=== PATIENT | female | born 1955 | race Caucasian/White ===

== ENCOUNTER → 2016-07-27 | Outpatient (CLI) | payer MEDICAID ==
[2016-07-27 08:23] LABS: ABSOLUTE BASOPHILS # (AUTO) 0.1 10^3/uL (0.0-0.2); ABSOLUTE EOSINOPHILS # (AUTO) 0.3 10^3/uL (0.0-0.6); ABSOLUTE LYMPHOCYTES (AUTO) 1.9 10^3/uL (0.5-4.7); ABSOLUTE MONOCYTES (AUTO) 0.6 10^3/uL (0.1-1.4); ABSOLUTE NEUT (AUTO) 6.3 10^3/uL (1.7-8.2); BASOPHILS % (AUTO) 1.1 % (0-2); EOSINOPHILS % (AUTO) 3.7 % (0-6); HEMATOCRIT 37.3 % (36.0-47.0); HEMOGLOBIN 12.6 g/dL (12.0-15.5); HGB HCT DIFFERENCE 0.5; LYMPHOCYTES % (AUTO) 20.6 % (13-45); MEAN CORPUSCULAR HGB CONC 33.8 g/dL (32.0-36.0); MEAN CORPUSCULAR VOLUME 95 fl (80-97); RED BLOOD COUNT 3.94 10^6/uL (3.72-5.28); RED CELL DISTRIBUTION WIDTH 13.4 % (11.5-14.0); SEGMENTED NEUTROPHILS % (AUTO) 67.6 % (42-78); WHITE BLOOD COUNT 9.3 10^3/uL (4.0-10.5)
[2016-07-27 08:42] LABS: ALBUMIN 4.1 g/dL (3.5-5.0); ANION GAP 14 (5-19); BLOOD UREA NITROGEN 19 mg/dL (7-20); CALCIUM 9.6 mg/dL (8.4-10.2); CARBON DIOXIDE 29 mmol/L (22-30); CHLORIDE 100 mmol/L (98-107); CREATININE RESULT 1.26 mg/dL (0.52-1.25); GLUCOSE 86 mg/dL (75-110); PHOSPHORUS 5.3 mg/dL (2.5-4.5); POTASSIUM 5.1 mmol/L (3.6-5.0); SODIUM 143.3 mmol/L (137-145)
[2016-07-27 08:50] LABS: APPEARANCE,URINE CLEAR; BILIRUBIN,URINE NEGATIVE (NEGATIVE); GLUCOSE, URINE NEGATIVE (NEGATIVE); KETONES,URINE NEGATIVE (NEGATIVE); LEUKOCYTE ESTERASE,URINE NEGATIVE (NEGATIVE); NITRITE,URINE NEGATIVE (NEGATIVE); PROTEIN,URINE NEGATIVE (NEGATIVE); URINE SPECIFIC GRAVITY 1.005; UROBILINOGEN,URINE NEGATIVE mg/dL (<2.0)
[2016-07-28 07:12] LABS: VITAMIN D 25-HYDROXY 26.2 ng/mL (30.0-100.0)
[2016-07-28 12:38] LABS: CREATININE URINE 38.1 mg/dL (Not Estab.)
[2016-07-28 13:47] LABS: MICROALBUMIN URINE <3.0 ug/mL (Not Estab.)
== END ==
LOC: OD 07:22
PROVIDERS: ATTEND Internal Medicine Nephrology
DX: N18.3 Chronic kidney disease, stage 3 (moderate) (principal); E11.9 Type 2 diabetes mellitus without complications; E55.9 Vitamin D deficiency, unspecified
CPT/HCPCS: 36415; 80048; 81001; 82040; 82043; 82306; 82570; 83970; 84100; 85025

== ENCOUNTER → 2016-10-26 | Outpatient (CLI) | payer MEDICAID ==
[2016-10-26 10:17] LABS: ANION GAP 11 (5-19); BLOOD UREA NITROGEN 12 mg/dL (7-20); CALCIUM 9.8 mg/dL (8.4-10.2); CARBON DIOXIDE 30 mmol/L (22-30); CHLORIDE 98 mmol/L (98-107); CREATININE RESULT 0.97 mg/dL (0.52-1.25); GLUCOSE 257 mg/dL (75-110); PHOSPHORUS 3.2 mg/dL (2.5-4.5); POTASSIUM 4.7 mmol/L (3.6-5.0)
== END ==
LOC: OD 08:56
PROVIDERS: ATTEND Internal Medicine Nephrology
DX: N18.3 Chronic kidney disease, stage 3 (moderate) (principal); E55.9 Vitamin D deficiency, unspecified
CPT/HCPCS: 36415; 80048; 82306; 84100

== ENCOUNTER → 2017-03-01 | Outpatient (CLI) | payer MEDICAID ==
[2017-03-01 09:06] LABS: ANION GAP 14 (5-19); BLOOD UREA NITROGEN 25 mg/dL (7-20); CALCIUM 9.1 mg/dL (8.4-10.2); CARBON DIOXIDE 27 mmol/L (22-30); CHLORIDE 97 mmol/L (98-107); CREATININE RESULT 1.47 mg/dL (0.52-1.25); GLUCOSE 146 mg/dL (75-110); POTASSIUM 4.5 mmol/L (3.6-5.0)
[2017-03-02 12:38] LABS: CREATININE URINE 100.4 mg/dL (Not Estab.); MICROALBUMIN URINE <3.0 ug/mL (Not Estab.)
== END ==
LOC: OD 07:42
PROVIDERS: ATTEND Internal Medicine Nephrology
DX: N18.3 Chronic kidney disease, stage 3 (moderate) (principal); E11.22 Type 2 diabetes mellitus with diabetic chronic kidney disease
CPT/HCPCS: 36415; 80048; 82043; 82570

== ENCOUNTER → 2017-06-18 | Outpatient (CLI) | payer MEDICAID ==
[2017-06-18 07:30] LABS: ABSOLUTE BASOPHILS # (AUTO) 0.1 10^3/uL (0.0-0.2); ABSOLUTE EOSINOPHILS # (AUTO) 0.3 10^3/uL (0.0-0.6); ABSOLUTE LYMPHOCYTES (AUTO) 1.9 10^3/uL (0.5-4.7); ABSOLUTE MONOCYTES (AUTO) 0.8 10^3/uL (0.1-1.4); ABSOLUTE NEUT (AUTO) 6.1 10^3/uL (1.7-8.2); BASOPHILS % (AUTO) 0.8 % (0-2); HEMOGLOBIN 15.5 g/dL (12.0-15.5); LYMPHOCYTES % (AUTO) 20.7 % (13-45); MEAN CORPUSCULAR HEMOGLOBIN 31.3 pg (27.0-33.4); MEAN CORPUSCULAR HGB CONC 33.7 g/dL (32.0-36.0); MEAN CORPUSCULAR VOLUME 93 fl (80-97); PLATELET COUNT 278 10^3/uL (150-450); RED BLOOD COUNT 4.96 10^6/uL (3.72-5.28); RED CELL DISTRIBUTION WIDTH 13.1 % (11.5-14.0); SEGMENTED NEUTROPHILS % (AUTO) 66.5 % (42-78); TOTAL CELLS COUNTED % (AUTO) 100 %; WHITE BLOOD COUNT 9.2 10^3/uL (4.0-10.5)
[2017-06-18 07:33] LABS: APPEARANCE,URINE CLEAR; BILIRUBIN,URINE NEGATIVE (NEGATIVE); COLOR,URINE STRAW; GLUCOSE, URINE NEGATIVE (NEGATIVE); KETONES,URINE NEGATIVE (NEGATIVE); LEUKOCYTE ESTERASE,URINE NEGATIVE (NEGATIVE); NITRITE,URINE NEGATIVE (NEGATIVE); PROTEIN,URINE NEGATIVE (NEGATIVE); URINE SPECIFIC GRAVITY 1.002; UROBILINOGEN,URINE NEGATIVE mg/dL (<2.0)
[2017-06-18 08:00] LABS: ALBUMIN 4.7 g/dL (3.5-5.0); ANION GAP 11 (5-19); BLOOD UREA NITROGEN 17 mg/dL (7-20); CARBON DIOXIDE 30 mmol/L (22-30); CHLORIDE 98 mmol/L (98-107); GLUCOSE 88 mg/dL (75-110); PHOSPHORUS 3.5 mg/dL (2.5-4.5)
[2017-06-19 12:37] LABS: CREATININE URINE 13.7 mg/dL (Not Estab.); MICROALBUMIN URINE 11.7 ug/mL (Not Estab.)
== END ==
LOC: OD 07:03
PROVIDERS: ATTEND Internal Medicine Nephrology
DX: I12.9 Hypertensive chronic kidney disease with stage 1 through stage 4 chronic kidney disease, or unspecified chronic kidney disease (principal); N18.3 Chronic kidney disease, stage 3 (moderate); E55.9 Vitamin D deficiency, unspecified
CPT/HCPCS: 36415; 80048; 81001; 82040; 82043; 82306; 82570; 83970; 84100; 85025

== ENCOUNTER 2017-08-28 15:25 | Inpatient (IN) | payer MEDICAID ==
[2017-08-28] MEDS ORDERED: PROPOFOL 100 ML IV ONE (15:36)
[2017-08-28] MEDS ORDERED: ETOMIDATE INJ/PF 20 MG/10 ML SDV IV ONE (15:36)
[2017-08-28] MEDS ORDERED: NORMAL SALINE 1000 ML 1,000 ML IV ONE (15:37)
--- NOTE | 2017-08-28 15:41 | ER Document Report ---
ED General - General Stated Complaint: UNRESPONSIVE Time Seen by Provider: 08/28/17 15:26 Mode of Arrival: Medic Information source: Emergency Med Personnel Cannot obtain history due to: Unstable vital signs, Altered mental status Notes: 62-year-old female presents unresponsive with EMS concerns for not acting appropriate. neighbr noted patient was found unresponsive, ems noted blood suga rat 20, was given dextrose blood sugar improved to 160 but patient was still unresponsve. nasal trumpet placed and patient bagged, sats in the mid to low 80s. ptnoted to have a recent endarterectomy performed at [facility]. TRAVEL OUTSIDE OF THE [place] IN LAST 30 DAYS: No - HPI Onset: Just prior to arrival Onset/Duration: Sudden Quality of pain: No pain Severity: Severe Pain Level: Denies Associated symptoms: Other Exacerbated by: Denies Relieved by: Denies Similar symptoms previously: No Recently seen / treated by doctor: Yes - Related Data Allergies/Adverse Reactions: amoxicillin [Amoxicillin] Allergy (Unknown, Verified 04/05/16 14:43) erythromycin base [Erythromycin Base] Allergy (Unknown, Verified 04/05/16 14:43) tetracycline [Tetracycline] Allergy (Unknown, Verified 04/05/16 14:43) Past Medical History - General Cannot obtain history due to: Unstable vital signs, Altered mental status - Social History Smoking Status: Unknown if Ever Smoked Cigarette use (# per day): No Chew tobacco use (# tins/day): No Smoking Education Provided: No Family History: Reviewed & Not Pertinent - Past Medical History Cardiac Medical History: Reports: Hx Hypercholesterolemia, Hx Hypertension - hctz amlodipine metropolol Denies: Hx Heart Attack Pulmonary Medical History: Reports: Hx COPD Denies: Hx Asthma Neurological Medical History: Denies: Hx Cerebrovascular Accident, Hx Seizures Endocrine Medical History: Reports: Hx Diabetes Mellitus Type 1, Hx Diabetes Mellitus Type 2 - IDDM GI Medical History: Denies: Hx Hepatitis, Hx Hiatal Hernia, Hx Ulcer Musculoskeltal Medical History: Reports Hx Arthritis Psychiatric Medical History: Reports: Hx Anxiety, Hx Depression Infectious Medical History: Denies: Hx Hepatitis Past Surgical History: Reports: Hx Oral Surgery - bone spurs and ingrown toenails. Denies: Hx Mastectomy, Hx Open Heart Surgery, Hx Pacemaker - Immunizations Hx Diphtheria, Pertussis, Tetanus Vaccination: Yes Hx Pneumococcal Vaccination: 04/12/15 Review of Systems - Review of Systems Notes: PHYSICAL EXAMINATION: GENERAL: Morbidly obese female unresponsive to pain stimuli HEAD: Atraumatic, normocephalic. EYES: Pupils are fixed ENT: Nares patent, oropharynx clear without exudates. Moist mucous membranes. Patient clenched tight nasal trumpet in place NECK: No movement LUNGS: Coarse breath sounds all throughout HEART: Bradycardic ABDOMEN: Soft, nontender, nondistended abdomen. No guarding, no rebound. No masses appreciated. Female : deferred Musculoskeletal: Not moving extremities NEUROLOGICAL: GCS 3 SKIN: Ecchymosis of abdomen -: Yes ROS unobtainable due to patient's medical condition Physical Exam - Vital signs Vitals: Resp Pulse Ox 24 H 83 L 08/28/17 15:29 08/28/17 15:29 Course - Re-evaluation Re-evalutation: 08/28/17 15:41 Given history of carotid endarterectomy I believe the patient may have had clots that caused a stroke led to aspiration respiratory distress and patient became hypoglycemic afterwards is unclear how long she has been down for CTA of the head has been ordered 08/28/17 16:30 Patient's potassium was noted to be 6.0 calcium is been ordered, Bella has been paged 08/28/17 21:12 Patient was admitted to the hospital service here there is no signs of CVA at this time patient appears to be moving extremities now - Vital Signs Vital signs: Temp Pulse Resp BP Pulse Ox 16 155/45 H 98 08/28/17 17:21 08/28/17 17:21 08/28/17 19:34 - Laboratory Result Diagrams: 08/28/17 15:40 08/28/17 15:40 Laboratory results interpreted by me: 08/28/17 08/28/17 08/28/17 15:40 15:40 15:40 WBC 12.2 H Seg Neutrophils % 83.2 H Lymphocytes % 8.8 L Absolute Neutrophils 10.2 H VBG pH 7.26 L VBG pCO2 74.8 H* VBG HCO3 32.6 H Potassium 6.0 H* Chloride 97 L BUN 23 H Creatinine 1.40 H Est GFR ( Amer) 46 L Est GFR (Non-Af Amer) 38 L Glucose 73 L POC Glucose 08/28/17 08/28/17 17:03 17:47 WBC Seg Neutrophils % Lymphocytes % Absolute Neutrophils VBG pH VBG pCO2 VBG HCO3 Potassium Chloride BUN Creatinine Est GFR ( Amer) Est GFR (Non-Af Amer) Glucose POC Glucose 60 L 197 H - Diagnostic Test Radiology reviewed: Image reviewed, Reports reviewed Procedures - Intubation Orotracheal Time of Intubation: 15:30 Airway evaluation: Normal anatomy Mallampati Classification: Class 1 Medications: Etomidate, Succinylcholine Intubation method: Orotracheal Blade type: Zuleima Blade size: 4 ETT size: 7.0 ETT secured at: Teeth ETT secured at (cm): 22 Breath Sounds after Intubation: Equal End tidal CO2 confirmed: Yes Post Intubation Xray: Yes Intubation Complications: No complications Critical Care Note - Critical Care Note Total time excluding time spent on procedures (mins): 52 Comments: 52 minutes of critical care time spent in direct contact evaluating and reevaluating the patient, treating symptoms, reviewing labs and studies and speaking with family and consultants excluding any procedures Discharge - Discharge Clinical Impression: Chronic renal failure, stage 3 (moderate), Hypoxemia, Hypoglycemic coma Altered mental status Qualifiers: Altered mental status type: unspecified Qualified Code(s): R41.82 - Altered mental status, unspecified Condition: Critical Disposition: ADMITTED INPATIENT Admitting Provider: Hospitalist Unit Admitted: ICU
--- NOTE | 2017-08-28 15:56 | RADIOLOGY REPORT (SQ) ---
EXAM DESCRIPTION: CHEST SINGLE VIEW COMPLETED DATE/TIME: 08/28/2017 3:43 pm REASON FOR STUDY: post intubation COMPARISON: None. EXAM PARAMETERS: NUMBER OF VIEWS: One view. TECHNIQUE: Single frontal radiographic view of the chest acquired. RADIATION DOSE: NA LIMITATIONS: Rotated. FINDINGS: LUNGS AND PLEURA: Elevated left hemidiaphragm. Possible scattered atelectasis. Possible mild vascular congestion. MEDIASTINUM AND HILAR STRUCTURES: No masses. Contour normal. HEART AND VASCULAR STRUCTURES: Heart normal in size. BONES: No acute findings. HARDWARE: Endotracheal tube with the tip located 3 cm proximal to the maulik. OTHER: No other significant finding. IMPRESSION: ENDOTRACHEAL TUBE APPEARS TO BE IN SATISFACTORY POSITION. STUDY LIMITED DUE TO PATIENT ROTATION. TECHNICAL DOCUMENTATION: JOB ID: [id number] [employer]- All Rights Reserved Reading location - IP/workstation name: [email or web address]
[2017-08-28 15:59] LABS: ABSOLUTE BASOPHILS # (AUTO) 0.1 10^3/uL (0.0-0.2); ABSOLUTE EOSINOPHILS # (AUTO) 0.2 10^3/uL (0.0-0.6); ABSOLUTE LYMPHOCYTES (AUTO) 1.1 10^3/uL (0.5-4.7); ABSOLUTE MONOCYTES (AUTO) 0.7 10^3/uL (0.1-1.4); ABSOLUTE NEUT (AUTO) 10.2 10^3/uL (1.7-8.2); BASOPHILS % (AUTO) 0.5 % (0-2); EOSINOPHILS % (AUTO) 1.5 % (0-6); HEMOGLOBIN 14.5 g/dL (12.0-15.5); LYMPHOCYTES % (AUTO) 8.8 % (13-45); MEAN CORPUSCULAR HEMOGLOBIN 30.8 pg (27.0-33.4); MEAN CORPUSCULAR HGB CONC 32.9 g/dL (32.0-36.0); MEAN CORPUSCULAR VOLUME 94 fl (80-97); PLATELET COUNT 266 10^3/uL (150-450); SEGMENTED NEUTROPHILS % (AUTO) 83.2 % (42-78); TOTAL CELLS COUNTED % (AUTO) 100 %; WHITE BLOOD COUNT 12.2 10^3/uL (4.0-10.5)
[2017-08-28 16:03] LABS: VENOUS BLOOD BASE EXCESS 2.8 mmol/L; VENOUS BLOOD HCO3 32.6 mmol/L (20-32); VENOUS BLOOD PH 7.26 (7.30-7.42)
[2017-08-28 16:05] LABS: VENOUS BLOOD PCO2 74.8 mmHg (35-63)
[2017-08-28 16:07] LABS: INTERNATIONAL RATION (INR) 0.95; PROTHROMBIN TIME 13.2 SEC (11.4-15.4)
[2017-08-28 16:15] LABS: APPEARANCE,URINE CLEAR; BILIRUBIN,URINE NEGATIVE (NEGATIVE); COLOR,URINE YELLOW; GLUCOSE, URINE NEGATIVE (NEGATIVE); KETONES,URINE NEGATIVE (NEGATIVE); LEUKOCYTE ESTERASE,URINE NEGATIVE (NEGATIVE); NITRITE,URINE NEGATIVE (NEGATIVE); PROTEIN,URINE NEGATIVE (NEGATIVE); URINE SPECIFIC GRAVITY 1.012; UROBILINOGEN,URINE NEGATIVE mg/dL (<2.0)
[2017-08-28 16:18] LABS: ALANINE AMINOTRANSFERASE 36 U/L (9-52); ALBUMIN 3.7 g/dL (3.5-5.0); ALKALINE PHOSPHATASE 87 U/L (38-126); ANION GAP 11 (5-19); ASPARTATE AMINO TRANSFERASE 29 U/L (14-36); BILIRUBIN,DIRECT 0.3 mg/dL (0.0-0.4); BILIRUBIN,TOTAL 0.3 mg/dL (0.2-1.3); BLOOD UREA NITROGEN 23 mg/dL (7-20); CALCIUM 9.1 mg/dL (8.4-10.2); CARBON DIOXIDE 29 mmol/L (22-30); CHLORIDE 97 mmol/L (98-107); GLUCOSE 73 mg/dL (75-110); TOTAL PROTEIN 7.1 g/dL (6.3-8.2)
--- NOTE | 2017-08-28 16:26 | RADIOLOGY REPORT (SQ) ---
EXAM DESCRIPTION: KUB/ABDOMEN (SINGLE VIEW) COMPLETED DATE/TIME: 08/28/2017 4:14 pm REASON FOR STUDY: NG TUBE PLACEMENT COMPARISON: None. NUMBER OF VIEWS: One view. TECHNIQUE: Supine radiographic image of the abdomen acquired. LIMITATIONS: None. FINDINGS: NG tube tip overlies the antral region of the stomach. No free air identified. OTHER: No other significant finding. IMPRESSION: NG tube tip overlies the antral region of the stomach. No free air identified. TECHNICAL DOCUMENTATION: JOB ID: [id number] [place]-72 2010 [employer]- All Rights Reserved Reading location - IP/workstation name: [email or web address]
[2017-08-28] MEDS ORDERED: CALCIUM GLUCONATE 1000 MG/10 ML INJ IV ONE (16:27)
[2017-08-28] MEDS ORDERED: DEXTROSE 50%-WATER 25 GM/50 ML DISP.SYRIN IV ONE ×3 (16:49→17:06)
[2017-08-28] MEDS ORDERED: INSULIN REG, HUMAN 100 UNIT/ML 3 ML VIAL (PYX) IV ONE (16:49)
[2017-08-28] MEDS ORDERED: ALBUTEROL SULFATE 0.083% NEB 2.5 MG/3 ML AMPUL NEB ONE (16:49)
[2017-08-28] MEDS ORDERED: SODIUM BICARBONATE 8.4% INJ 50 MEQ/50 ML DISP.SYRIN IV ONE (16:49)
--- NOTE | 2017-08-28 17:07 | RADIOLOGY REPORT (SQ) ---
EXAM DESCRIPTION: CTA HEAD COMPLETED DATE/TIME: 08/28/2017 4:49 pm REASON FOR STUDY: post intubation COMPARISON: 04/05/2016 TECHNIQUE: Post IV contrast scanning, thin section axial imaging through the brain to evaluate the a rterial structures. Source and MIP images are saved and reviewed on PACS. Advanced 3D imaging as volume-rendering, MIPs, SSD performed? No All CT scanners at this facility use dose modulation, iterative reconstruction, and/or weight based d osing when appropriate to reduce radiation dose to as low as reasonably achievable (ALARA). [facility]: Dose Right [facility]: CareDose [facility]: Dose Right [facility]: Teradose 4D [facility]: ExtraOrtho CONTRAST TYPE AND DOSE: contrast/concentration: Isovue 370.00 mg/ml; Total Contrast Delivered: 70.0 ml; Total Saline Delivered: 75.1 ml RENAL FUNCTION: Due to the severity of the patient's condition, the treating physician elected to pe rform the study prior to obtaining labs. LIMITATIONS: None. FINDINGS: [place]: The anterior, middle, posterior cerebral arteries are all patent. No ev idence of aneurysm or focal stenosis. POSTERIOR CIRCULATION: The distal vertebral arteries are patent as is the basilar artery. No aneurysm . BRAIN: No gross enhancing lesions as visualized. The superior cerebral hemispheres are not included in the field of view. BONES: Intact as visualized. SINUSES: No fluid or mucosal thickening. OTHER: The patient is intubated. A nasal enteric tube is present. Atherosclerotic vascular calcific ations are present within the cavernous segments of the internal carotid arteries bilaterally resulti ng in less than 50% stenosis. IMPRESSION: NO CTA EVIDENCE OF STENOSIS OR ANEURYSM OF THE [place]. TECHNICAL DOCUMENTATION: JOB ID: [id number] Quality ID # [id number]: Final reports with documentation of one or more dose reduction techniques (e.g., Au tomated exposure control, adjustment of the mA and/or kV according to patient size, use of iterative reconstruction technique) 2010 [employer]- All Rights Reserved Reading location - IP/workstation name: [email or web address]
[2017-08-28] MEDS ORDERED: MIDAZOLAM HCL 50 MG/100 ML RTUINJ IV ONE (18:16)
[2017-08-28] MEDS: MIDAZOLAM HCL 50 MG/100 ML RTUINJ IV PRN (18:16)
[2017-08-28] MEDS ORDERED: ONDANSETRON HCL INJ/PF 4 MG/2 ML SDV IV PRN (18:21)
[2017-08-28] MEDS ORDERED: DEXTROSE 50%-WATER 25 GM/50 ML DISP.SYRIN IV PRN ×2 (18:21)
[2017-08-28] MEDS ORDERED: DEXTROSE 40% GEL 15 GM TUBE PO PRN ×2 (18:21)
[2017-08-28] MEDS ORDERED: GLUCAGON,HUMAN RECOMB 1 MG INJ SUBCUT PRN (18:21)
[2017-08-28] MEDS ORDERED: MIDAZOLAM HCL 50 MG/100 ML RTUINJ IV PRN (18:39)
--- NOTE | 2017-08-28 18:41 | PDOC H&P ---
History of Present Illness Admission Date/PCP: 08/28/17 18:08 Patient complains of: Unresponsive History of Present Illness: CHELLY MONTALVO is a 62 year old female This patient presents to the emergency room after being found unresponsive by her family. She was last seen yesterday evening and was found to be unresponsive and hypoglycemic with a blood sugar of 20. Blood sugar improved to 160 but patient apparently remained unresponsive and on arrival to the emergency room she was intubated. Patient currently is unable to provide any history as she is currently intubated. She was found to be very hyperkalemic with a potassium of 6 and acidotic with a pH of 7.2 and PCO2 of 70. Past Medical History Cardiac Medical History: Reports: Hyperlipidema, Hypertension - hctz amlodipine metropolol Denies: Myocardial Infarction Pulmonary Medical History: Reports: Chronic Obstructive Pulmonary Disease (COPD) Denies: Asthma Neurological Medical History: Denies: Seizures Endocrine Medical History: Reports: Diabetes Mellitus Type 1, Diabetes Mellitus Type 2 - IDDM GI Medical History: Denies: Hepatitis, Hiatal Hernia Musculoskeltal Medical History: Reports: Arthritis Psychiatric Medical History: Reports: Depression Hematology: Reports: Anemia - HX OF MANY YRS AGO Denies: Sickle Cell Disease Past Surgical History Past Surgical History: Reports: Carotid Endarterectomy - Recently at [facility] Denies: Amputation, Mastectomy, Pacemaker Social History Information Source: [facility] Records Lives with: Alone Smoking Status: Unknown if Ever Smoked Frequency of Alcohol Use: None Hx Recreational Drug Use: No Drugs: None Hx Prescription Drug Abuse: No - Advance Directive Resuscitation Status: Full Code Family History Family History: Reviewed & Not Pertinent Parental Family History Reviewed: No - Unavailable Children Family History Reviewed: Unknown Sibling(s) Family History Reviewed.: Unknown Medication/Allergy Home Medications: Amlodipine Besylate [Norvasc 10 mg Tablet] 10 mg PO DAILY 07/29/11 Cetirizine HCl [Zyrtec 10 mg Tablet] 10 mg PO DAILY 07/29/11 Clonazepam [Klonopin 1 mg Tablet] 1 mg PO TID 07/29/11 Dorzolamide HCl/Timolol Maleat [Cosopt Eye Drops] 5 ml OP BID 07/29/11 Doxepin HCl 50 mg PO QHS 07/29/11 Hum Insulin NPH/Reg Insulin Hm [Humulin 70-30 Pen] 55 unit SQ BID 07/29/11 Latanoprost [Xalatan] 2.5 ml OP QHS 07/29/11 Metoprolol Tartrate [Lopressor 50 mg Tablet] 50 mg PO BID 07/29/11 Olopatadine HCl [Patanol] 5 ml OP BID 07/29/11 Polyethylene Glycol 3350 [Miralax Powder 17 gm/Packet] 17 gm PO DAILY 07/29/11 Simvastatin [Zocor 40 mg Tablet] 40 mg PO QHS 07/29/11 Aripiprazole [Abilify 2 mg Tablet] 2 mg PO 03/10/12 Citalopram Hydrobromide [Celexa 40 mg Tablet] 40 mg PO 03/10/12 Gabapentin [Neurontin 300 mg Capsule] 300 mg PO 03/10/12 Hydrocodone Bit/Acetaminophen [Vicodin 5-500 mg Tablet ([facility] Only)] 1 - 2 tab PO ASDIR PRN #15 tablet 03/10/12 Multivitamin [Tab-A-Eliezer (Multiple Vitamin) Tablet] 1 tab PO DAILY 03/10/12 Olopatadine HCl [Patanol 0.1% Oph Soln 5 ml] 1 drop BID 03/10/12 Polyethylene Glycol 3350 [Miralax Powder 17 gm/Packet] 17 gm PO 03/10/12 Valsartan [Diovan] 320 mg PO DAILY 03/10/12 Aspirin [Ecotrin 325 mg EC Tablet] 325 mg PO DAILY tabec 04/06/16 Allergies/Adverse Reactions: amoxicillin [Amoxicillin] Allergy (Unknown, Verified 04/05/16 14:43) erythromycin base [Erythromycin Base] Allergy (Unknown, Verified 04/05/16 14:43) tetracycline [Tetracycline] Allergy (Unknown, Verified 04/05/16 14:43) Review of Systems ROS unobtainable: Due to endotracheal tube Physical Exam Vital Signs: Temp Pulse Resp BP Pulse Ox 16 155/45 H 98 08/28/17 17:21 08/28/17 17:21 08/28/17 17:21 General appearance: PRESENT: well-developed, well-nourished, other - intubated Head exam: PRESENT: atraumatic, normocephalic Eye exam: PRESENT: conjunctiva pink, PERRLA. ABSENT: scleral icterus Ear exam: PRESENT: normal external ear exam Mouth exam: PRESENT: moist, other - intubated Neck exam: ABSENT: carotid bruit, JVD, lymphadenopathy, thyromegaly Respiratory exam: PRESENT: decreased breath sounds. ABSENT: rales, rhonchi, wheezes Cardiovascular exam: PRESENT: RRR. ABSENT: diastolic murmur, rubs, systolic murmur Pulses: PRESENT: normal dorsalis pedis pul Vascular exam: PRESENT: normal capillary refill GI/Abdominal exam: PRESENT: normal bowel sounds, soft. ABSENT: distended, guarding, mass, organolmegaly, rebound, tenderness Rectal exam: PRESENT: deferred Extremities exam: PRESENT: full ROM. ABSENT: calf tenderness, clubbing, pedal edema Neurological exam: PRESENT: other - sedated, intermittently awake. ABSENT: motor sensory deficit Skin exam: PRESENT: dry, intact, warm, other - Bruise Left upper extremities. ABSENT: cyanosis, rash Results Impressions: KUB X-Ray 08/28/17 00:00 IMPRESSION: NG tube tip overlies the antral region of the stomach. No free air identified. Chest X-Ray 08/28/17 15:37 IMPRESSION: ENDOTRACHEAL TUBE APPEARS TO BE IN SATISFACTORY POSITION. STUDY LIMITED DUE TO PATIENT ROTATION. Head CTA 08/28/17 15:37 IMPRESSION: NO CTA EVIDENCE OF STENOSIS OR ANEURYSM OF THE [place]. Assessment & Plan - Diagnosis (1) Acute respiratory failure with hypercapnia Is this a current diagnosis for this admission?: Yes Plan: Patient was intubated in the emergency room she was found to be hypercapnic with respiratory failure. Will not start on Versed drip and continue propofol. Consult manager crisis to help in the management (2) Hypoglycemia Is this a current diagnosis for this admission?: Yes Plan: Patient was found hypoglycemic originally. Does have a history of diabetes. Other information is unknown currently (3) Hyperkalemia Is this a current diagnosis for this admission?: Yes Plan: Potassium of 6 likely related to acidosis. Save albuterol as well as calcium gluconate insulin close dextrose in the emergency room. Will check basic metabolic profile again in a few hours (4) Acidosis Is this a current diagnosis for this admission?: Yes Plan: The combination of respiratory as well as metabolic. Will recheck ABG in a.m. - Time Time Spent: 30 to 50 Minutes Medications reviewed and adjusted accordingly: Yes Anticipated discharge: Home Within: within 72 hours - Inpatient Certification Based on my medical assessment, after consideration of the patient's comorbidities, presenting symptoms, or acuity I expect that the services needed warrant INPATIENT care.: Yes Medical Necessity: Need For IV Fluids, Need for IV Antibiotics, Risk of Complication if Not Cared For in Hospital
--- NOTE | 2017-08-28 20:45 | EKG REPORT ---
SEVERITY:- ABNORMAL ECG - SINUS BRADYCARDIA NONSPECIFIC INTRAVENTRICULAR CONDUCTION DELAY : Confirmed by: Americo Andersen 28-Aug-2017 17:45:02
[2017-08-28 20:52] LABS: ANION GAP 14 (5-19); BLOOD UREA NITROGEN 20 mg/dL (7-20); CALCIUM 9.4 mg/dL (8.4-10.2); CARBON DIOXIDE 25 mmol/L (22-30); CHLORIDE 100 mmol/L (98-107); GLUCOSE 161 mg/dL (75-110); SODIUM 139.2 mmol/L (137-145)
[2017-08-28] MEDS: PROPOFOL 100 ML IV PRN (20:58)
[2017-08-28] MEDS: LEVOFLOXACIN 500 MG/D5W RTU 500 MG/100 ML RTUPB IV SCH (21:58)
[2017-08-29] MEDS: PROPOFOL 100 ML IV PRN ×8 (00:45→23:42)
[2017-08-29 04:17] LABS: ABSOLUTE BASOPHILS # (AUTO) 0.1 10^3/uL (0.0-0.2); ABSOLUTE EOSINOPHILS # (AUTO) 0.1 10^3/uL (0.0-0.6); ABSOLUTE LYMPHOCYTES (AUTO) 0.8 10^3/uL (0.5-4.7); ABSOLUTE MONOCYTES (AUTO) 0.8 10^3/uL (0.1-1.4); ABSOLUTE NEUT (AUTO) 10.9 10^3/uL (1.7-8.2); BASOPHILS % (AUTO) 0.7 % (0-2); EOSINOPHILS % (AUTO) 0.6 % (0-6); HEMATOCRIT 42.8 % (36.0-47.0); HEMOGLOBIN 14.5 g/dL (12.0-15.5); LYMPHOCYTES % (AUTO) 6.6 % (13-45); MEAN CORPUSCULAR HGB CONC 33.8 g/dL (32.0-36.0); MEAN CORPUSCULAR VOLUME 92 fl (80-97); MONOCYTES % (AUTO) 6.5 % (3-13); PLATELET COUNT 234 10^3/uL (150-450); RED BLOOD COUNT 4.67 10^6/uL (3.72-5.28); RED CELL DISTRIBUTION WIDTH 13.8 % (11.5-14.0); SEGMENTED NEUTROPHILS % (AUTO) 85.6 % (42-78); TOTAL CELLS COUNTED % (AUTO) 100 %; WHITE BLOOD COUNT 12.8 10^3/uL (4.0-10.5)
[2017-08-29 04:38] LABS: ALANINE AMINOTRANSFERASE 29 U/L (9-52); ALBUMIN 3.2 g/dL (3.5-5.0); ALKALINE PHOSPHATASE 88 U/L (38-126); ANION GAP 14 (5-19); ASPARTATE AMINO TRANSFERASE 24 U/L (14-36); BILIRUBIN,DIRECT 0.4 mg/dL (0.0-0.4); BILIRUBIN,TOTAL 0.4 mg/dL (0.2-1.3); BLOOD UREA NITROGEN 17 mg/dL (7-20); CALCIUM 8.6 mg/dL (8.4-10.2); CARBON DIOXIDE 25 mmol/L (22-30); CHLORIDE 101 mmol/L (98-107); GLUCOSE 144 mg/dL (75-110); POTASSIUM 4.3 mmol/L (3.6-5.0); SODIUM 139.8 mmol/L (137-145); TOTAL PROTEIN 6.5 g/dL (6.3-8.2); TRIGLYCERIDES 355 mg/dL (<150)
[2017-08-29 06:04] LABS: ARTERIAL BLOOD BASE EXCESS 2.6 mmol/L; ARTERIAL BLOOD H2CO3 1.04 mmol/L (1.05-1.35); ARTERIAL BLOOD HCO3 25.6 mmol/L (20-26); ARTERIAL BLOOD O2 SATURATION 95.6 % (94-98); ARTERIAL BLOOD PCO2 34.7 mmHg (35-45); ARTERIAL BLOOD PH 7.49 (7.35-7.45); ARTERIAL BLOOD PO2 71.8 mmHg (80-100); ARTERIAL BLOOD TOTAL CO2 26.6 mmol/L (21-25)
[2017-08-29 06:05] LABS: ARTERIAL BLOOD FIO2 70%
[2017-08-29] MEDS ORDERED: MIDAZOLAM 2 MG/2 ML INJ ONE ×3 (07:21→07:23)
[2017-08-29] MEDS: MIDAZOLAM HCL 50 MG/100 ML RTUINJ IV PRN ×2 (07:46→17:54)
[2017-08-29] MEDS: ENOXAPARIN SODIUM INJ 40 MG/0.4 ML DISP.SYRIN SUBCUT SCH (10:13)
[2017-08-29] MEDS: PANTOPRAZOLE SODIUM 40 MG VIAL IV SCH (10:14)
[2017-08-29] MEDS: RINGERS SOLUTION,LACTATED 1,000 ML IV PRN ×2 (10:15→19:41)
--- NOTE | 2017-08-29 10:17 | PDOC CONSULTATION ---
Consultation Consult Date: 08/29/17 Consult reason:: need IV access History of Present Illness Admission Date/PCP: 08/28/17 18:08 History of Present Illness: CHELLY MONTALVO is a 62 year old female currently intubated and sedated on a ventilator via ETT in need of IV access for medications and fluid. Past Medical History Cardiac Medical History: Reports: Hyperlipidema, Hypertension - hctz amlodipine metropolol Denies: Myocardial Infarction Pulmonary Medical History: Reports: Chronic Obstructive Pulmonary Disease (COPD) Denies: Asthma Neurological Medical History: Denies: Seizures Endocrine Medical History: Reports: Diabetes Mellitus Type 1, Diabetes Mellitus Type 2 - IDDM GI Medical History: Denies: Hepatitis, Hiatal Hernia Musculoskeltal Medical History: Reports: Arthritis Psychiatric Medical History: Reports: Depression Hematology: Reports: Anemia - HX OF MANY YRS AGO Denies: Sickle Cell Disease Past Surgical History Past Surgical History: Reports: Carotid Endarterectomy - Recently at [facility] Denies: Amputation, Mastectomy, Pacemaker Social History Lives with: Alone Smoking Status: Unknown if Ever Smoked Frequency of Alcohol Use: None Hx Recreational Drug Use: No Drugs: None Hx Prescription Drug Abuse: No - Advance Directive Resuscitation Status: Full Code Family History Family History: Reviewed & Not Pertinent Parental Family History Reviewed: No Children Family History Reviewed: No Sibling(s) Family History Reviewed.: No Medication/Allergy Home Medications: Amlodipine Besylate [Norvasc 10 mg Tablet] 10 mg PO DAILY 07/29/11 Cetirizine HCl [Zyrtec 10 mg Tablet] 10 mg PO DAILY 07/29/11 Clonazepam [Klonopin 1 mg Tablet] 1 mg PO TID 07/29/11 Dorzolamide HCl/Timolol Maleat [Cosopt Eye Drops] 5 ml OP BID 07/29/11 Doxepin HCl 50 mg PO QHS 07/29/11 Hum Insulin NPH/Reg Insulin Hm [Humulin 70-30 Pen] 55 unit SQ BID 07/29/11 Latanoprost [Xalatan] 2.5 ml OP QHS 07/29/11 Metoprolol Tartrate [Lopressor 50 mg Tablet] 50 mg PO BID 07/29/11 Olopatadine HCl [Patanol] 5 ml OP BID 07/29/11 Polyethylene Glycol 3350 [Miralax Powder 17 gm/Packet] 17 gm PO DAILY 07/29/11 Simvastatin [Zocor 40 mg Tablet] 40 mg PO QHS 07/29/11 Aripiprazole [Abilify 2 mg Tablet] 2 mg PO 03/10/12 Citalopram Hydrobromide [Celexa 40 mg Tablet] 40 mg PO 03/10/12 Gabapentin [Neurontin 300 mg Capsule] 300 mg PO 03/10/12 Hydrocodone Bit/Acetaminophen [Vicodin 5-500 mg Tablet ([facility])] 1 - 2 tab PO ASDIR PRN #15 tablet 03/10/12 Multivitamin [Tab-A-Eliezer (Multiple Vitamin) Tablet] 1 tab PO DAILY 03/10/12 Olopatadine HCl [Patanol 0.1% Oph Soln 5 ml] 1 drop BID 03/10/12 Polyethylene Glycol 3350 [Miralax Powder 17 gm/Packet] 17 gm PO 03/10/12 Valsartan [Diovan] 320 mg PO DAILY 03/10/12 Aspirin [Ecotrin 325 mg EC Tablet] 325 mg PO DAILY tabec 04/06/16 Allergies/Adverse Reactions: amoxicillin [Amoxicillin] Allergy (Unknown, Verified 04/05/16 14:43) erythromycin base [Erythromycin Base] Allergy (Unknown, Verified 04/05/16 14:43) tetracycline [Tetracycline] Allergy (Unknown, Verified 04/05/16 14:43) Physical Exam Vital Signs: Temp Pulse Resp BP Pulse Ox 100.8 F H 86 16 134/99 H 95 08/29/17 06:05 08/29/17 08:10 08/29/17 08:10 08/29/17 06:05 08/29/17 08:10 Intake & Output 08/28/17 08/29/17 08/30/17 06:59 06:59 06:59 Output Total 1710 200 Balance -1710 -200 Weight 97.3 kg General appearance: PRESENT: morbidly obese, other - sedated, intubated, unresponsive Neck exam: PRESENT: full ROM, meningismus Respiratory exam: PRESENT: clear to auscultation daphnie Cardiovascular exam: PRESENT: RRR Results Laboratory Results: 08/29/17 03:53 08/29/17 03:53 08/28/17 08/29/17 08/29/17 20:27 03:53 03:53 WBC 12.8 H RBC 4.67 Hgb 14.5 Hct 42.8 MCV 92 MCH 31.0 MCHC 33.8 RDW 13.8 Plt Count 234 Seg Neutrophils % 85.6 H Lymphocytes % 6.6 L Monocytes % 6.5 Eosinophils % 0.6 Basophils % 0.7 Absolute Neutrophils 10.9 H Absolute Lymphocytes 0.8 Absolute Monocytes 0.8 Absolute Eosinophils 0.1 Absolute Basophils 0.1 Carbonic Acid HCO3/H2CO3 Ratio ABG pH ABG pCO2 ABG pO2 ABG HCO3 ABG O2 Saturation ABG Base Excess FiO2 Sodium 139.2 139.8 Potassium 5.0 D 4.3 Chloride 100 101 Carbon Dioxide 25 25 Anion Gap 14 14 BUN 20 17 Creatinine 1.15 0.90 Est GFR ( Amer) 58 L > 60 Est GFR (Non-Af Amer) 48 L > 60 Glucose 161 H 144 H Calcium 9.4 8.6 Total Bilirubin 0.4 AST 24 ALT 29 Alkaline Phosphatase 88 Total Protein 6.5 Albumin 3.2 L Triglycerides 355 H TSH 08/29/17 08/29/17 03:53 05:48 WBC RBC Hgb Hct MCV MCH MCHC RDW Plt Count Seg Neutrophils % Lymphocytes % Monocytes % Eosinophils % Basophils % Absolute Neutrophils Absolute Lymphocytes Absolute Monocytes Absolute Eosinophils Absolute Basophils Carbonic Acid 1.04 L HCO3/H2CO3 Ratio 24:1 ABG pH 7.49 H ABG pCO2 34.7 L ABG pO2 71.8 L ABG HCO3 25.6 ABG O2 Saturation 95.6 ABG Base Excess 2.6 FiO2 70% Sodium Potassium Chloride Carbon Dioxide Anion Gap BUN Creatinine Est GFR ( Amer) Est GFR (Non-Af Amer) Glucose Calcium Total Bilirubin AST ALT Alkaline Phosphatase Total Protein Albumin Triglycerides TSH 0.87 Impressions: KUB X-Ray 08/28/17 00:00 IMPRESSION: NG tube tip overlies the antral region of the stomach. No free air identified. Chest X-Ray 08/28/17 15:37 IMPRESSION: ENDOTRACHEAL TUBE APPEARS TO BE IN SATISFACTORY POSITION. STUDY LIMITED DUE TO PATIENT ROTATION. Head CTA 08/28/17 15:37 IMPRESSION: NO CTA EVIDENCE OF STENOSIS OR ANEURYSM OF THE [place]. Assessment & Plan - Diagnosis (1) Need for intravenous access Is this a current diagnosis for this admission?: Yes - Plan Summary Plan Summary: A/ patient intubate, sedated in need of IV access P/ Placement of CVL in the ICU CXray to follow
--- NOTE | 2017-08-29 10:19 | Operative Report ---
Nonrecallable Operative Report DATE OF SURGERY: 08/29/17 PREOPERATIVE DIAGNOSIS: need of IV access POSTOPERATIVE DIAGNOSIS: same OPERATION: right subclavian CVL placement SURGEON: ARMINDA MARION ANESTHESIA: Local TISSUE REMOVED OR ALTERED: n/a COMPLICATIONS: none ESTIMATED BLOOD LOSS: < 2 mL INTRAOPERATIVE FINDINGS: as above PROCEDURE: see dictation
--- NOTE | 2017-08-29 10:35 | RADIOLOGY REPORT (SQ) ---
EXAM DESCRIPTION: CHEST SINGLE VIEW COMPLETED DATE/TIME: 08/29/2017 10:14 am REASON FOR STUDY: CENTRAL LINE PLACEMENT COMPARISON: 08/28/2017. EXAM PARAMETERS: NUMBER OF VIEWS: One view. TECHNIQUE: Single frontal radiographic view of the chest acquired. RADIATION DOSE: NA LIMITATIONS: None. FINDINGS: LUNGS AND PLEURA: Streaky linear density in the left upper lobe. Prominent left perihilar density. Right lung relatively clear. No pleural effusion or pneumothorax. MEDIASTINUM AND HILAR STRUCTURES: No masses. Contour normal. HEART AND VASCULAR STRUCTURES: Heart normal in size. Normal vasculature. BONES: No acute findings. HARDWARE: Stable endotracheal tube and nasogastric tube. Right-sided central line with the tip at th e level of the superior vena cava. OTHER: No other significant finding. IMPRESSION: 1. CENTRAL LINE IN SATISFACTORY POSITION WITH NO PNEUMOTHORAX. 2. STREAKY DENSITY IN THE LEFT UPPER LOBE MAY BE DUE TO ATELECTASIS AND/OR PNEUMONIA. THERE IS ALSO PROMINENT LEFT PERIHILAR DENSITY WHICH COULD REPRESENT UNDERLYING MASS LESION. TECHNICAL DOCUMENTATION: JOB ID: [id number] [employer]- All Rights Reserved Reading location - IP/workstation name: VICE PRESIDENT [email or web address]
[2017-08-29] MEDS ORDERED: SUCCINYLCHOLINE CHLORIDE INJ 200 MG/10 ML VIAL ONE (10:36)
--- NOTE | 2017-08-29 10:55 | OPERATIVE REPORT E ---
Operative Report NAME: CHELLY MONTALVO : 1955 AGE: 62Y DATE OF SURGERY: 08/29/2017 ROOM: 601 PREOPERATIVE DIAGNOSIS: IN NEED OF INTRAVENOUS ACCESS. POSTOPERATIVE DIAGNOSIS: IN NEED OF INTRAVENOUS ACCESS. PROCEDURE: Placement of right subclavian vein intravenous line triple-lumen catheter. SURGEON: ARMINDA MARION M.D. SHIFT SUPERVISOR MELTING: None. BLOOD LOSS: Minimal. COMPLICATIONS: None. ANESTHESIA: 5 mL of 1% lidocaine without epinephrine. INDICATION/FINDINGS: This is a 62-year-old female admitted, currently intubated, in need of IV access for administration of medications and fluids. DESCRIPTION OF PROCEDURE: No family member was available; therefore, a physician consent was obtained. The procedure was done at bedside in the ICU. The patient was placed in the supine Trendelenburg position with towels placed in between the shoulder blades. The right chest and neck were prepped with in usual fashion. Just below the mid portion of the clavicle was infiltrated with lidocaine and a 16-gauge needle was inserted to easily cannulate the distal subclavian vein. The guidewire was inserted through a needle into the subclavian vein to the superior vena cava. The needle was removed and insertion port of the guidewire was enlarged with a #11 blade. The tissue was and the blade was removed. The triple-lumen catheter was inserted over the guidewire up to 16 cm. The guidewire was then removed. The triple-lumen catheter was then secured to the skin with sutures. Each port was flushed with normal saline without difficulty and sterile dressing applied. The patient tolerated the procedure and a chest x-ray was obtained, which confirmed good position of the line. DICTATING PHYSICIAN: ARMINDA MARION M.D. [id number] PHY#: [id number] ID: [id number] JOB#: [id number] ACCT: [id number] cc:ARMINDA MARION M.D. >
[2017-08-29] MEDS ORDERED: ACETAMINOPHEN 325 MG TABLET NG PRN (11:51)
[2017-08-29] MEDS ORDERED: HYDROCODONE/ACETAMINOPHEN 7.5-325 MG TABLET PO SCH (12:00)
[2017-08-29] MEDS ORDERED: (PENDING PHARMACY ID) (Valsartan [Diovan] 320 MG) NG SCH (12:00)
--- NOTE | 2017-08-29 12:02 | PDOC PROGRESS REPORT ---
Subjective Progress Note for:: 08/29/17 Subjective:: Patient admitted with acute respiratory failure after she was found hypoglycemic and unresponsive. She remains on mechanical ventilation today. She is requiring 50mcg of Diprivan as well as Versed infusion at this time Reason For Visit: ACUTE RESPIRATORY FAIURE HYPOGLYCEMIA Physical Exam Vital Signs: Temp Pulse Resp BP Pulse Ox 99.7 F 91 16 164/59 H 96 08/29/17 11:00 08/29/17 10:00 08/29/17 11:00 08/29/17 10:35 08/29/17 11:00 Intake & Output 08/28/17 08/29/17 08/30/17 06:59 06:59 06:59 Output Total 1710 500 Balance -1710 -500 Weight 97.3 kg General appearance: PRESENT: no acute distress, well-developed, well-nourished, other - Intubated Head exam: PRESENT: atraumatic, normocephalic Eye exam: PRESENT: conjunctiva pink, PERRLA. ABSENT: scleral icterus Mouth exam: PRESENT: tongue midline Neck exam: ABSENT: carotid bruit, JVD, lymphadenopathy, thyromegaly Respiratory exam: PRESENT: decreased breath sounds. ABSENT: rales, rhonchi, wheezes Cardiovascular exam: PRESENT: RRR. ABSENT: diastolic murmur, rubs, systolic murmur Pulses: PRESENT: normal dorsalis pedis pul GI/Abdominal exam: PRESENT: normal bowel sounds, soft. ABSENT: distended, guarding, mass, organolmegaly, rebound, tenderness Rectal exam: PRESENT: deferred Extremities exam: PRESENT: full ROM. ABSENT: calf tenderness, clubbing, pedal edema Neurological exam: PRESENT: other - Currently sedated Psychiatric exam: ABSENT: suicidal ideation Skin exam: PRESENT: dry, intact, warm. ABSENT: cyanosis, rash Results Laboratory Results: 08/29/17 03:53 08/29/17 03:53 08/28/17 08/29/17 08/29/17 20:27 03:53 03:53 WBC 12.8 H RBC 4.67 Hgb 14.5 Hct 42.8 MCV 92 MCH 31.0 MCHC 33.8 RDW 13.8 Plt Count 234 Seg Neutrophils % 85.6 H Lymphocytes % 6.6 L Monocytes % 6.5 Eosinophils % 0.6 Basophils % 0.7 Absolute Neutrophils 10.9 H Absolute Lymphocytes 0.8 Absolute Monocytes 0.8 Absolute Eosinophils 0.1 Absolute Basophils 0.1 Carbonic Acid HCO3/H2CO3 Ratio ABG pH ABG pCO2 ABG pO2 ABG HCO3 ABG O2 Saturation ABG Base Excess FiO2 Sodium 139.2 139.8 Potassium 5.0 D 4.3 Chloride 100 101 Carbon Dioxide 25 25 Anion Gap 14 14 BUN 20 17 Creatinine 1.15 0.90 Est GFR ( Amer) 58 L > 60 Est GFR (Non-Af Amer) 48 L > 60 Glucose 161 H 144 H Calcium 9.4 8.6 Total Bilirubin 0.4 AST 24 ALT 29 Alkaline Phosphatase 88 Total Protein 6.5 Albumin 3.2 L Triglycerides 355 H TSH 08/29/17 08/29/17 03:53 05:48 WBC RBC Hgb Hct MCV MCH MCHC RDW Plt Count Seg Neutrophils % Lymphocytes % Monocytes % Eosinophils % Basophils % Absolute Neutrophils Absolute Lymphocytes Absolute Monocytes Absolute Eosinophils Absolute Basophils Carbonic Acid 1.04 L HCO3/H2CO3 Ratio 24:1 ABG pH 7.49 H ABG pCO2 34.7 L ABG pO2 71.8 L ABG HCO3 25.6 ABG O2 Saturation 95.6 ABG Base Excess 2.6 FiO2 70% Sodium Potassium Chloride Carbon Dioxide Anion Gap BUN Creatinine Est GFR ( Amer) Est GFR (Non-Af Amer) Glucose Calcium Total Bilirubin AST ALT Alkaline Phosphatase Total Protein Albumin Triglycerides TSH 0.87 Impressions: KUB X-Ray 08/28/17 00:00 IMPRESSION: NG tube tip overlies the antral region of the stomach. No free air identified. Head CTA 08/28/17 15:37 IMPRESSION: NO CTA EVIDENCE OF STENOSIS OR ANEURYSM OF THE [place]. Chest X-Ray 08/29/17 00:00 IMPRESSION: 1. CENTRAL LINE IN SATISFACTORY POSITION WITH NO PNEUMOTHORAX. 2. STREAKY DENSITY IN THE LEFT UPPER LOBE MAY BE DUE TO ATELECTASIS AND/OR PNEUMONIA. THERE IS ALSO PROMINENT LEFT PERIHILAR DENSITY WHICH COULD REPRESENT UNDERLYING MASS LESION. Assessment & Plan - Diagnosis (1) Acute respiratory failure with hypercapnia Is this a current diagnosis for this admission?: Yes Plan: Patient was intubated in the emergency room she was found to be hypercapnic with respiratory failure. Continue propofol and Versed. Pulmonology consultation is pending. Hypercapnia resolved (2) Hypoglycemia Is this a current diagnosis for this admission?: Yes Plan: Blood sugars have been acceptable (3) Hyperkalemia Is this a current diagnosis for this admission?: Yes Plan: Resolved etiology of which is still unclear (4) Acidosis Is this a current diagnosis for this admission?: Yes Plan: Resolved - Time Time Spent with patient: 25-34 minutes Medications reviewed and adjusted accordingly: Yes Anticipated discharge: Home Within: within 72 hours - Inpatient Certification Based on my medical assessment, after consideration of the patient's comorbidities, presenting symptoms, or acuity I expect that the services needed warrant INPATIENT care.: Yes Medical Necessity: Need for IV Antibiotics, Risk of Complication if Not Cared For in Hospital - Plan Summary Plan Summary: Urinary tract infection secondary to gram-positive cocci patient is on empiric Levaquin. We will adjust antibiotics depending on her clinical course Patient is still requiring [place] FiO2 and she remains hypoxemic so of course this is of concern I would need to rule out underlying PE. Is of course on the vent. Will order a CTA of the chest for further review.
[2017-08-29] MEDS ORDERED: HYDROCODONE/ACETAMINOPHEN 10-325 MG TABLET ONE (12:35)
[2017-08-29] MEDS ORDERED: METOPROLOL TARTRATE 50 MG TABLET NG ONE (15:30)
[2017-08-29] MEDS ORDERED: AMLODIPINE BESYLATE 10 MG TABLET NG ONE (15:30)
[2017-08-29] MEDS ORDERED: DORZOLAMIDE HCL 2%/TIMOLOL MALEAT 0.5% OPH SOLN 10 ML OP ONE (15:30)
[2017-08-29] MEDS ORDERED: VALSARTAN 160 MG TABLET NG ONE (15:30)
[2017-08-29] MEDS ORDERED: HYDROCHLOROTHIAZIDE 25 MG TABLET PO ONE (15:30)
[2017-08-29] MEDS ORDERED: NICOTINE 14 MG/24 HR PATCH.TD24 TD ONE (16:00)
[2017-08-29] MEDS: HYDROCODONE/ACETAMINOPHEN 7.5-325 MG TABLET NG SCH ×2 (17:52→23:41)
[2017-08-29] MEDS: INSULIN REG, HUMAN 100 UNIT/ML 3 ML VIAL (PYX) SUBCUT PRN (17:53)
[2017-08-29] MEDS ORDERED: HYDRALAZINE HCL INJ/PF 20 MG/1 ML SDV ONE (18:33)
[2017-08-29] MEDS ORDERED: HYDRALAZINE HCL INJ/PF 20 MG/1 ML SDV IV PRN (18:37)
--- NOTE | 2017-08-29 18:55 | PDOC CONSULTATION ---
Consultation Consult Date: 08/29/17 Attending physician:: RACHEL SALGADO Consult reason:: resp failure History of Present Illness Admission Date/PCP: 08/28/17 18:08 History of Present Illness: CHELLY MONTALVO is a 62 year old female,presented unresponsive and hypoglycemic mental status did not improve after blood glucose restored.She was acidotic and hypercanic with hypoxia requiring intubation and mechanical ventilation. Past Medical History Cardiac Medical History: Reports: Hyperlipidema, Hypertension - hctz amlodipine metropolol Denies: Myocardial Infarction Pulmonary Medical History: Reports: Chronic Obstructive Pulmonary Disease (COPD) Denies: Asthma Neurological Medical History: Denies: Seizures Endocrine Medical History: Reports: Diabetes Mellitus Type 1, Diabetes Mellitus Type 2 - IDDM GI Medical History: Denies: Hepatitis, Hiatal Hernia Musculoskeltal Medical History: Reports: Arthritis Psychiatric Medical History: Reports: Depression Hematology: Reports: Anemia - HX OF MANY YRS AGO Denies: Sickle Cell Disease Past Surgical History Past Surgical History: Reports: Carotid Endarterectomy - Recently at [facility] Denies: Amputation, Mastectomy, Pacemaker Social History Information Source: [facility] Records Lives with: Alone Smoking Status: Unknown if Ever Smoked Frequency of Alcohol Use: None Hx Recreational Drug Use: No Drugs: None Hx Prescription Drug Abuse: No - Advance Directive Resuscitation Status: Full Code Family History Parental Family History Reviewed: No Children Family History Reviewed: No Sibling(s) Family History Reviewed.: No Medication/Allergy Home Medications: Amlodipine Besylate [Norvasc 10 mg Tablet] 10 mg PO DAILY 07/29/11 Cetirizine HCl [Zyrtec 10 mg Tablet] 10 mg PO DAILY 07/29/11 Hum Insulin NPH/Reg Insulin Hm [Humulin 70-30 Pen] 55 unit SQ QAM 07/29/11 Polyethylene Glycol 3350 [Miralax Powder 17 gm/Packet] 17 gm PO DAILY 07/29/11 Gabapentin [Neurontin 300 mg Capsule] 300 mg PO TID 03/10/12 Aripiprazole [Abilify 5 mg Tablet] 5 mg PO DAILY 08/29/17 Atorvastatin Calcium [Lipitor 10 mg Tablet] 10 mg PO QHS 08/29/17 Brimonidine Tartrate/Timolol [Combigan 0.2%-0.5% Eye Drops] 5 ml OU BID Clonazepam [Klonopin] 0.5 mg PO TID 08/29/17 Clonidine HCl [Catapres 0.1 mg Tablet] 0.1 mg PO QIDP PRN 08/29/17 Cyclosporine [Restasis] 1 drop OU BID 08/29/17 Duloxetine HCl [Cymbalta] 120 mg PO DAILY 08/29/17 Hydrocodone Bit/Acetaminophen [Hydrocodon-Acetaminophn 10-325] 1 each PO Q4HP PRN 08/29/17 Insulin NPH Hum/Reg Insulin Hm [Humulin 70/30 Kwikpen] 52 unit SQ QHS 08/29/17 Levothyroxine Sodium [Synthroid 50 Mcg Tablet] 50 mcg PO DAILY 08/29/17 Metoprolol Succinate [Toprol Xl 25 mg Tab.sr] 75 mg PO QHS 08/29/17 Valsartan/Hydrochlorothiazide [Diovan Hct 320-25 mg Tablet] 1 tab PO DAILY 08/29 Zolpidem Tartrate [Ambien] 10 mg PO QHS 08/29/17 Allergies/Adverse Reactions: amoxicillin [Amoxicillin] Allergy (Unknown, Verified 04/05/16 14:43) erythromycin base [Erythromycin Base] Allergy (Unknown, Verified 04/05/16 14:43) tetracycline [Tetracycline] Allergy (Unknown, Verified 04/05/16 14:43) Review of Systems ROS unobtainable: Due to endotracheal tube, Due to mental status Physical Exam Vital Signs: Temp Pulse Resp BP Pulse Ox 100.8 F H 65 16 134/99 H 94 08/29/17 06:05 08/28/17 19:26 08/29/17 06:05 08/29/17 06:05 08/29/17 06:05 Intake & Output 08/28/17 08/29/17 08/30/17 06:59 06:59 06:59 Output Total 1710 Balance -1710 Weight 97.3 kg General appearance: PRESENT: no acute distress, disheveled, obese. ABSENT: cooperative Head exam: PRESENT: atraumatic, normocephalic Eye exam: PRESENT: conjunctiva pale. ABSENT: EOMI, nystagmus, periorbital swelling, scleral icterus Mouth exam: PRESENT: dry mucosa, neck supple, tongue midline, other - Et tube Neck exam: ABSENT: carotid bruit, JVD, lymphadenopathy, thyromegaly, tracheal deviation, tracheostomy Respiratory exam: PRESENT: decreased breath sounds, prolonged expiratory phas, rhonchi, unlabored. ABSENT: retraction, stridor, tachypnea Cardiovascular exam: PRESENT: RRR, +S1, +S2, tachycardia Pulses: PRESENT: normal radial pulses GI/Abdominal exam: PRESENT: soft Extremities exam: ABSENT: clubbing, joint swelling, pedal edema Musculoskeletal exam: ABSENT: deformity, dislocation Neurological exam: ABSENT: awake, oriented to person Skin exam: PRESENT: dry, warm Results Laboratory Results: 08/29/17 03:53 08/29/17 03:53 08/28/17 08/29/17 08/29/17 20:27 03:53 03:53 WBC 12.8 H RBC 4.67 Hgb 14.5 Hct 42.8 MCV 92 MCH 31.0 MCHC 33.8 RDW 13.8 Plt Count 234 Seg Neutrophils % 85.6 H Lymphocytes % 6.6 L Monocytes % 6.5 Eosinophils % 0.6 Basophils % 0.7 Absolute Neutrophils 10.9 H Absolute Lymphocytes 0.8 Absolute Monocytes 0.8 Absolute Eosinophils 0.1 Absolute Basophils 0.1 Carbonic Acid HCO3/H2CO3 Ratio ABG pH ABG pCO2 ABG pO2 ABG HCO3 ABG O2 Saturation ABG Base Excess FiO2 Sodium 139.2 139.8 Potassium 5.0 D 4.3 Chloride 100 101 Carbon Dioxide 25 25 Anion Gap 14 14 BUN 20 17 Creatinine 1.15 0.90 Est GFR ( Amer) 58 L > 60 Est GFR (Non-Af Amer) 48 L > 60 Glucose 161 H 144 H Calcium 9.4 8.6 Total Bilirubin 0.4 AST 24 ALT 29 Alkaline Phosphatase 88 Total Protein 6.5 Albumin 3.2 L Triglycerides 355 H TSH 08/29/17 08/29/17 03:53 05:48 WBC RBC Hgb Hct MCV MCH MCHC RDW Plt Count Seg Neutrophils % Lymphocytes % Monocytes % Eosinophils % Basophils % Absolute Neutrophils Absolute Lymphocytes Absolute Monocytes Absolute Eosinophils Absolute Basophils Carbonic Acid 1.04 L HCO3/H2CO3 Ratio 24:1 ABG pH 7.49 H ABG pCO2 34.7 L ABG pO2 71.8 L ABG HCO3 25.6 ABG O2 Saturation 95.6 ABG Base Excess 2.6 FiO2 70% Sodium Potassium Chloride Carbon Dioxide Anion Gap BUN Creatinine Est GFR ( Amer) Est GFR (Non-Af Amer) Glucose Calcium Total Bilirubin AST ALT Alkaline Phosphatase Total Protein Albumin Triglycerides TSH 0.87 Impressions: KUB X-Ray 08/28/17 00:00 IMPRESSION: NG tube tip overlies the antral region of the stomach. No free air identified. Chest X-Ray 08/28/17 15:37 IMPRESSION: ENDOTRACHEAL TUBE APPEARS TO BE IN SATISFACTORY POSITION. STUDY LIMITED DUE TO PATIENT ROTATION. Head CTA 08/28/17 15:37 IMPRESSION: NO CTA EVIDENCE OF STENOSIS OR ANEURYSM OF THE [place]. Assessment & Plan - Diagnosis (1) Lung mass Is this a current diagnosis for this admission?: Yes Plan: L hilar enlargement consider CT (2) Acute respiratory failure with hypercapnia Is this a current diagnosis for this admission?: Yes Plan: unresponsive (3) Diabetes Is this a current diagnosis for this admission?: Yes Plan: per pcp (4) Glaucoma Is this a current diagnosis for this admission?: Yes Plan: continue home meds (5) Hypertension Is this a current diagnosis for this admission?: Yes (6) Chronic, continuous use of opioids Is this a current diagnosis for this admission?: Yes Plan: resume vicoden - Time Total Critical Time (Minutes): 55
[2017-08-29] MEDS: LEVOFLOXACIN 500 MG/D5W RTU 500 MG/100 ML RTUPB IV SCH (21:02)
[2017-08-29] MEDS: DORZOLAMIDE HCL 2%/TIMOLOL MALEAT 0.5% OPH SOLN 10 ML OU SCH (21:03)
[2017-08-29] MEDS: LATANOPROST 0.005% OPH SOLN 2.5 ML OU SCH (21:04)
[2017-08-29] MEDS: SIMVASTATIN 40 MG TABLET NG SCH (21:04)
[2017-08-29] MEDS: METOPROLOL TARTRATE 25 MG TABLET NG SCH (21:05)
[2017-08-29] MEDS ORDERED: METOPROLOL TARTRATE 50 MG TABLET NG SCH (22:00)
[2017-08-29] MEDS ORDERED: METOPROLOL SUCCINATE 25 MG TAB.SR.24H PO SCH (22:00)
[2017-08-30] MEDS: PROPOFOL 100 ML IV PRN ×6 (03:33→23:18)
[2017-08-30 05:12] LABS: ABSOLUTE EOSINOPHILS # (AUTO) 0.2 10^3/uL (0.0-0.6); ABSOLUTE MONOCYTES (AUTO) 1.1 10^3/uL (0.1-1.4); ABSOLUTE NEUT (AUTO) 10.3 10^3/uL (1.7-8.2); ARTERIAL BLOOD BASE EXCESS 2.3 mmol/L; ARTERIAL BLOOD FIO2 40%; ARTERIAL BLOOD H2CO3 1.07 mmol/L (1.05-1.35); ARTERIAL BLOOD HCO3 25.5 mmol/L (20-26); ARTERIAL BLOOD O2 SATURATION 92.8 % (94-98); ARTERIAL BLOOD PCO2 35.5 mmHg (35-45); ARTERIAL BLOOD PH 7.48 (7.35-7.45); ARTERIAL BLOOD PO2 60.3 mmHg (80-100); ARTERIAL BLOOD TOTAL CO2 26.6 mmol/L (21-25); BASOPHILS % (AUTO) 0.3 % (0-2); EOSINOPHILS % (AUTO) 1.2 % (0-6); HEMATOCRIT 43.6 % (36.0-47.0); HEMOGLOBIN 14.6 g/dL (12.0-15.5); LYMPHOCYTES % (AUTO) 8.3 % (13-45); MEAN CORPUSCULAR HEMOGLOBIN 30.6 pg (27.0-33.4); MEAN CORPUSCULAR HGB CONC 33.5 g/dL (32.0-36.0); MEAN CORPUSCULAR VOLUME 91 fl (80-97); MONOCYTES % (AUTO) 9.1 % (3-13); PLATELET COUNT 234 10^3/uL (150-450); RED BLOOD COUNT 4.77 10^6/uL (3.72-5.28); SEGMENTED NEUTROPHILS % (AUTO) 81.1 % (42-78); TOTAL CELLS COUNTED % (AUTO) 100 %; WHITE BLOOD COUNT 12.7 10^3/uL (4.0-10.5)
[2017-08-30] MEDS: MIDAZOLAM HCL 50 MG/100 ML RTUINJ IV PRN ×2 (05:17→13:58)
[2017-08-30] MEDS: HYDROCODONE/ACETAMINOPHEN 7.5-325 MG TABLET NG SCH ×4 (05:17→23:17)
[2017-08-30] MEDS: RINGERS SOLUTION,LACTATED 1,000 ML IV PRN ×3 (05:19→20:40)
[2017-08-30 05:24] LABS: ALANINE AMINOTRANSFERASE 27 U/L (9-52); ALBUMIN 3.3 g/dL (3.5-5.0); ALKALINE PHOSPHATASE 98 U/L (38-126); ANION GAP 12 (5-19); ASPARTATE AMINO TRANSFERASE 17 U/L (14-36); BILIRUBIN,DIRECT 0.4 mg/dL (0.0-0.4); BILIRUBIN,TOTAL 0.5 mg/dL (0.2-1.3); BLOOD UREA NITROGEN 16 mg/dL (7-20); CALCIUM 9.1 mg/dL (8.4-10.2); CARBON DIOXIDE 28 mmol/L (22-30); CHLORIDE 97 mmol/L (98-107); GLUCOSE 281 mg/dL (75-110); PHOSPHORUS 2.9 mg/dL (2.5-4.5); POTASSIUM 3.6 mmol/L (3.6-5.0); SODIUM 136.9 mmol/L (137-145); TOTAL PROTEIN 6.5 g/dL (6.3-8.2)
[2017-08-30] MEDS: INSULIN REG, HUMAN 100 UNIT/ML 3 ML VIAL (PYX) SUBCUT PRN ×3 (05:54→18:29)
--- NOTE | 2017-08-30 08:06 | RADIOLOGY REPORT (SQ) ---
EXAM DESCRIPTION: CHEST SINGLE VIEW COMPLETED DATE/TIME: 08/30/2017 6:45 am REASON FOR STUDY: resp failure COMPARISON: Chest films 08/29/2017, 08/28/2017, 04/05/2016 EXAM PARAMETERS: NUMBER OF VIEWS: One view. TECHNIQUE: Single frontal radiographic view of the chest acquired. RADIATION DOSE: NA LIMITATIONS: None. FINDINGS: LUNGS AND PLEURA: Bandlike volume loss in the bilateral upper lobes left greater than righ t atelectasis versus pneumonia. No pleural effusions. No pneumothorax. MEDIASTINUM AND HILAR STRUCTURES: Fullness at the left hilum, mass could not be excluded. HEART AND VASCULAR STRUCTURES: Heart normal in size. Normal vasculature. BONES: No acute findings. HARDWARE: Endotracheal tube tip 5 cm above the maulik. Nasogastric tube tip and side port in the sto mach. Right-sided triple-lumen catheter tip in the superior vena cava. OTHER: No other significant finding. IMPRESSION: Partial volume loss left upper lobe with conus at the left hilum. Postobstructive pneum onia from hilar mass could not be excluded. CT chest recommended for followup. Partial volume loss medial right upper lobe atelectasis versus pneumonia. TECHNICAL DOCUMENTATION: JOB ID: [id number] [employer]- All Rights Reserved Reading location - IP/workstation name: [email or web address]
[2017-08-30 09:43] LABS: URINE AMPHETAMINES SCREEN NEGATIVE; URINE BARBITURATES SCREEN NEGATIVE; URINE COCAINE SCREEN NEGATIVE; URINE MARIJUANA (THC) SCREEN NEGATIVE; URINE METHADONE SCREEN NEGATIVE; URINE PHENCYCLIDINE SCREEN NEGATIVE
[2017-08-30 09:50] LABS: URINE BENZODIAZEPINES SCREEN UNCONFIRMED POSITIVE
[2017-08-30] MEDS: PANTOPRAZOLE SODIUM 40 MG VIAL IV SCH (11:17)
[2017-08-30] MEDS: NICOTINE 14 MG/24 HR PATCH.TD24 TD SCH (11:18)
[2017-08-30] MEDS: HYDROCHLOROTHIAZIDE 25 MG TABLET NG SCH (11:19)
[2017-08-30] MEDS: VALSARTAN 160 MG TABLET NG SCH (11:20)
[2017-08-30] MEDS: METOPROLOL TARTRATE 25 MG TABLET NG SCH ×2 (11:21→21:20)
[2017-08-30] MEDS: AMLODIPINE BESYLATE 10 MG TABLET NG SCH (11:21)
[2017-08-30] MEDS: ENOXAPARIN SODIUM INJ 40 MG/0.4 ML DISP.SYRIN SUBCUT SCH (11:22)
[2017-08-30] MEDS: DORZOLAMIDE HCL 2%/TIMOLOL MALEAT 0.5% OPH SOLN 10 ML OU SCH ×2 (11:23→21:20)
--- NOTE | 2017-08-30 11:41 | PDOC PROGRESS REPORT ---
Subjective Progress Note for:: 08/30/17 Subjective:: Intubated and sedated Reason For Visit: ACUTE RESPIRATORY FAIURE HYPOGLYCEMIA Physical Exam Vital Signs: Temp Pulse Resp BP Pulse Ox 98.6 F 89 16 164/64 H 95 08/30/17 07:48 08/30/17 07:48 08/30/17 07:48 08/30/17 07:48 08/30/17 07:51 Intake & Output 08/29/17 08/30/17 08/31/17 06:59 06:59 06:59 Intake Total 1430 Output Total 1710 3925 140 Balance -7420 -5675 -140 Weight 97.3 kg 96.3 kg General appearance: PRESENT: no acute distress, disheveled, obese. ABSENT: cooperative Head exam: PRESENT: normocephalic Eye exam: PRESENT: conjunctiva pale. ABSENT: nystagmus, periorbital swelling, scleral icterus Mouth exam: PRESENT: dry mucosa, neck supple, tongue midline, other - Et tube Neck exam: ABSENT: carotid bruit, JVD, lymphadenopathy, thyromegaly, tracheal deviation, tracheostomy Respiratory exam: PRESENT: decreased breath sounds, prolonged expiratory phas, rhonchi, unlabored, wheezes. ABSENT: retraction, stridor Cardiovascular exam: PRESENT: RRR, +S1, +S2, tachycardia Pulses: PRESENT: normal radial pulses GI/Abdominal exam: PRESENT: hypoactive bowel sounds, soft Extremities exam: ABSENT: calf tenderness, clubbing, joint swelling Musculoskeletal exam: ABSENT: ambulatory, deformity, dislocation Neurological exam: ABSENT: awake, oriented to person Skin exam: PRESENT: dry, warm Results Laboratory Results: 08/30/17 04:55 08/30/17 04:55 08/30/17 08/30/17 08/30/17 04:55 04:55 04:55 WBC 12.7 H RBC 4.77 Hgb 14.6 Hct 43.6 MCV 91 MCH 30.6 MCHC 33.5 RDW 14.0 Plt Count 234 Seg Neutrophils % 81.1 H Lymphocytes % 8.3 L Monocytes % 9.1 Eosinophils % 1.2 Basophils % 0.3 Absolute Neutrophils 10.3 H Absolute Lymphocytes 1.0 Absolute Monocytes 1.1 Absolute Eosinophils 0.2 Absolute Basophils 0.0 Carbonic Acid 1.07 HCO3/H2CO3 Ratio 23:1 ABG pH 7.48 H ABG pCO2 35.5 ABG pO2 60.3 L ABG HCO3 25.5 ABG O2 Saturation 92.8 L ABG Base Excess 2.3 FiO2 40% Sodium 136.9 L Potassium 3.6 Chloride 97 L Carbon Dioxide 28 Anion Gap 12 BUN 16 Creatinine 0.82 Est GFR ( Amer) > 60 Est GFR (Non-Af Amer) > 60 Glucose 281 H Calcium 9.1 Phosphorus 2.9 Magnesium 1.5 L Total Bilirubin 0.5 AST 17 ALT 27 Alkaline Phosphatase 98 Total Protein 6.5 Albumin 3.3 L Impressions: KUB X-Ray 08/28/17 00:00 IMPRESSION: NG tube tip overlies the antral region of the stomach. No free air identified. Head CTA 08/28/17 15:37 IMPRESSION: NO CTA EVIDENCE OF STENOSIS OR ANEURYSM OF THE [place]. Chest X-Ray 08/30/17 06:00 IMPRESSION: Partial volume loss left upper lobe with conus at the left hilum. Postobstructive pneumonia from hilar mass could not be excluded. CT chest recommended for followup. Partial volume loss medial right upper lobe atelectasis versus pneumonia. Assessment & Plan - Diagnosis (1) Lung mass Is this a current diagnosis for this admission?: Yes Plan: L hilar enlargement CT (2) Acute respiratory failure with hypercapnia Is this a current diagnosis for this admission?: Yes Plan: No improvement in mental status, remains unresponsive (3) Diabetes Is this a current diagnosis for this admission?: Yes Plan: per pcp (4) Glaucoma Is this a current diagnosis for this admission?: Yes Plan: continue home meds (5) Hypertension Is this a current diagnosis for this admission?: Yes (6) Chronic, continuous use of opioids Is this a current diagnosis for this admission?: Yes Plan: resume vicoden - Time Total Critical Time (Minutes): 45
--- NOTE | 2017-08-30 13:04 | RADIOLOGY REPORT (SQ) ---
EXAM DESCRIPTION: CTA CHEST COMPLETED DATE/TIME: 08/30/2017 12:33 pm REASON FOR STUDY: Hypoxemia, Acute respiratory Failure COMPARISON: Chest films 04/05/2016, 08/28/2017, 08/29/2017, 08/30/2017 TECHNIQUE: CT scan of the chest performed using helical scanning technique with dynamic intravenous contrast injection. Images reviewed with lung, soft tissue and bone windows. Reconstructed coronal and sagittal MPR images reviewed. Additional 3 dimensional post-processing performed to develop Maximal Intensity Projection images ([place] P). All images stored on PACS. All CT scanners at this facility use dose modulation, iterative reconstruction, and/or weight based d osing when appropriate to reduce radiation dose to as low as reasonably achievable (ALARA). [facility]: Dose Right [facility]: CareDose [facility]: Dose Right [facility]: Teradose 4D [facility]: [place]ster CONTRAST TYPE AND DOSE: contrast/concentration: Isovue 370.00 mg/ml; Total Contrast Delivered: 79.0 ml; Total Saline Delivered: 89.2 ml Contrast bolus adequate for pulmonary arteries and aorta. RENAL FUNCTION: Creatinine 0.82 RADIATION DOSE: CT Rad equipment meets quality standard of care and radiation dose reduction techniq ues were employed. CTDIvol: 33.1 - 38.1 mGy. DLP: 1348 mGy-cm. . LIMITATIONS: None. FINDINGS: LUNGS AND PLEURA: There is bandlike volume loss and consolidation in the medial left upper lobe, throughout the left lower lobe along the posterior costophrenic sulcus, and in the medial righ t lung base. Multiple irregularly-shaped subcentimeter nodules are present in the bilateral lungs. These are abno rmal but nonspecific. These are certainly worrisome for metastatic disease. No pleural effusions. No pneumothorax. AORTA AND GREAT VESSELS: No aneurysm. Contrast bolus not optimized for the aorta. HEART: No pericardial effusion. No significant coronary artery calcifications. Mild cardiomegaly PULMONARY ARTERIES: No emboli visualized in the main pulmonary arteries or the segmental branches. HILAR AND MEDIASTINAL STRUCTURES: No identified masses or abnormal nodes. HARDWARE: Endotracheal tube tip at the thoracic inlet, about 7 to 8 cm above the maulik. Nasogastric tube tip and side port in the stomach. UPPER ABDOMEN: No significant findings. Limited exam. THYROID AND OTHER SOFT TISSUES: No masses. No adenopathy. BONES: No acute or significant finding. 3D MIPS: Confirm above findings. OTHER: No other significant finding. IMPRESSION: Multiple subcentimeter pulmonary nodules bilaterally Bandlike dense consolidation atelectasis versus pneumonia in the medial left upper lobe, left posteri or costophrenic sulcus and medial right lung base. No CT angio evidence of thoracic aortic dissection or acute pulmonary emboli. COMMENT: Quality ID # [id number]: Final reports with documentation of one or more dose reduction techniques (e.g., Automated exposure control, adjustment of the mA and/or kV according to patient size, use of iterative reconstruction technique) TECHNICAL DOCUMENTATION: JOB ID: [id number] [employer]- All Rights Reserved Reading location - IP/workstation name: [email or web address]
[2017-08-30] MEDS ORDERED: RINGERS SOLUTION,LACTATED 500 ML IV ONE ×2 (16:15→20:00)
--- NOTE | 2017-08-30 17:06 | PDOC PROGRESS REPORT ---
Subjective Progress Note for:: 08/30/17 Subjective:: Patient admitted with acute respiratory failure after she was found hypoglycemic and unresponsive. She remains on mechanical ventilation today. She is still sedated and requiring high FIO2 Reason For Visit: ACUTE RESPIRATORY FAIURE HYPOGLYCEMIA Physical Exam Vital Signs: Temp Pulse Resp BP Pulse Ox 96.4 F L 67 16 158/58 H 99 08/30/17 16:00 08/30/17 16:00 08/30/17 16:00 08/30/17 16:00 08/30/17 16:00 Intake & Output 08/29/17 08/30/17 08/31/17 06:59 06:59 06:59 Intake Total 1430 Output Total 1710 3925 970 Balance -9980 -2965 -970 Weight 97.3 kg 96.3 kg General appearance: PRESENT: no acute distress, well-developed, well-nourished, other Eye exam: PRESENT: conjunctival injection, PERRLA Mouth exam: PRESENT: moist, tongue midline Neck exam: ABSENT: thyromegaly Respiratory exam: PRESENT: other - mechanical intubation GI/Abdominal exam: PRESENT: normal bowel sounds, soft. ABSENT: distended, guarding, mass, organolmegaly, rebound, tenderness Extremities exam: PRESENT: full ROM. ABSENT: calf tenderness, clubbing, pedal edema Neurological exam: PRESENT: other - sedated Skin exam: PRESENT: dry, intact, warm. ABSENT: cyanosis, rash Results Laboratory Results: 08/30/17 04:55 08/30/17 04:55 08/30/17 08/30/17 08/30/17 04:55 04:55 04:55 WBC 12.7 H RBC 4.77 Hgb 14.6 Hct 43.6 MCV 91 MCH 30.6 MCHC 33.5 RDW 14.0 Plt Count 234 Seg Neutrophils % 81.1 H Lymphocytes % 8.3 L Monocytes % 9.1 Eosinophils % 1.2 Basophils % 0.3 Absolute Neutrophils 10.3 H Absolute Lymphocytes 1.0 Absolute Monocytes 1.1 Absolute Eosinophils 0.2 Absolute Basophils 0.0 Carbonic Acid 1.07 HCO3/H2CO3 Ratio 23:1 ABG pH 7.48 H ABG pCO2 35.5 ABG pO2 60.3 L ABG HCO3 25.5 ABG O2 Saturation 92.8 L ABG Base Excess 2.3 FiO2 40% Sodium 136.9 L Potassium 3.6 Chloride 97 L Carbon Dioxide 28 Anion Gap 12 BUN 16 Creatinine 0.82 Est GFR ( Amer) > 60 Est GFR (Non-Af Amer) > 60 Glucose 281 H Calcium 9.1 Phosphorus 2.9 Magnesium 1.5 L Total Bilirubin 0.5 AST 17 ALT 27 Alkaline Phosphatase 98 Total Protein 6.5 Albumin 3.3 L Impressions: KUB X-Ray 08/28/17 00:00 IMPRESSION: NG tube tip overlies the antral region of the stomach. No free air identified. Head CTA 08/28/17 15:37 IMPRESSION: NO CTA EVIDENCE OF STENOSIS OR ANEURYSM OF THE [place]. Chest/Abdomen CTA 08/29/17 00:00 IMPRESSION: Multiple subcentimeter pulmonary nodules bilaterally Bandlike dense consolidation atelectasis versus pneumonia in the medial left upper lobe, left posterior costophrenic sulcus and medial right lung base. No CT angio evidence of thoracic aortic dissection or acute pulmonary emboli. Chest X-Ray 08/30/17 06:00 IMPRESSION: Partial volume loss left upper lobe with conus at the left hilum. Postobstructive pneumonia from hilar mass could not be excluded. CT chest recommended for followup. Partial volume loss medial right upper lobe atelectasis versus pneumonia. Assessment & Plan - Diagnosis (1) Acute respiratory failure with hypercapnia Is this a current diagnosis for this admission?: Yes Plan: Patient was intubated in the emergency room she was found to be hypercapnic with respiratory failure. CT shows multiple pulmonary nodules bilaterally. Bandlike dense consolidation atelectasis versus pneumonia in the medial left upper lobe left posterior costophrenic phrenic sulcus medial right lung base. There is no CT evidence of thoracic aortic dissection or pulmonary emboli. We will continue empiric antibiotics as well as mechanical ventilation support. FiO2 is down to 50%. (2) Hypoglycemia Is this a current diagnosis for this admission?: Yes Plan: Resolved. Will cont sliding scale insulin (3) Hyperkalemia Is this a current diagnosis for this admission?: Yes (4) Acidosis Is this a current diagnosis for this admission?: Yes (5) Pneumonia Qualifiers: Lung location: unspecified part of lung Is this a current diagnosis for this admission?: Yes Plan: Multifocal possibly aspiration - Time Time Spent with patient: 15-24 minutes Medications reviewed and adjusted accordingly: Yes Anticipated discharge: Home - Inpatient Certification Based on my medical assessment, after consideration of the patient's comorbidities, presenting symptoms, or acuity I expect that the services needed warrant INPATIENT care.: Yes Medical Necessity: Need for IV Antibiotics
[2017-08-30] MEDS: MAGNESIUM SULFATE/D5W 1 GM/100 ML RTUPB IV SCH ×3 (17:25→20:40)
[2017-08-30] MEDS: LEVOFLOXACIN 500 MG/D5W RTU 500 MG/100 ML RTUPB IV SCH (21:19)
[2017-08-30] MEDS: LATANOPROST 0.005% OPH SOLN 2.5 ML OU SCH (21:20)
[2017-08-30] MEDS: SIMVASTATIN 40 MG TABLET NG SCH (21:21)
[2017-08-30] MEDS: MEROPENEM 1 GM in NORMAL SALINE 50 ML IV SCH (22:35)
[2017-08-31] MEDS: INSULIN REG, HUMAN 100 UNIT/ML 3 ML VIAL (PYX) SUBCUT PRN ×4 (00:12→18:05)
[2017-08-31] MEDS: PROPOFOL 100 ML IV PRN ×6 (01:55→22:47)
[2017-08-31] MEDS: MIDAZOLAM HCL 50 MG/100 ML RTUINJ IV PRN (01:55)
[2017-08-31] MEDS: MEROPENEM 1 GM in NORMAL SALINE 50 ML IV SCH ×3 (05:20→21:06)
[2017-08-31 05:21] LABS: ABSOLUTE EOSINOPHILS # (AUTO) 0.3 10^3/uL (0.0-0.6); ABSOLUTE NEUT (AUTO) 9.5 10^3/uL (1.7-8.2); BASOPHILS % (AUTO) 0.4 % (0-2); EOSINOPHILS % (AUTO) 2.5 % (0-6); HEMATOCRIT 40.7 % (36.0-47.0); HEMOGLOBIN 13.6 g/dL (12.0-15.5); LYMPHOCYTES % (AUTO) 8.5 % (13-45); MEAN CORPUSCULAR HEMOGLOBIN 30.4 pg (27.0-33.4); MEAN CORPUSCULAR HGB CONC 33.3 g/dL (32.0-36.0); MEAN CORPUSCULAR VOLUME 91 fl (80-97); MONOCYTES % (AUTO) 8.4 % (3-13); PLATELET COUNT 224 10^3/uL (150-450); RED BLOOD COUNT 4.46 10^6/uL (3.72-5.28); SEGMENTED NEUTROPHILS % (AUTO) 80.2 % (42-78); TOTAL CELLS COUNTED % (AUTO) 100 %; WHITE BLOOD COUNT 11.9 10^3/uL (4.0-10.5)
[2017-08-31] MEDS: HYDROCODONE/ACETAMINOPHEN 7.5-325 MG TABLET NG SCH ×3 (05:22→17:04)
[2017-08-31 05:26] LABS: ARTERIAL BLOOD BASE EXCESS 3.5 mmol/L; ARTERIAL BLOOD H2CO3 1.15 mmol/L (1.05-1.35); ARTERIAL BLOOD HCO3 27.2 mmol/L (20-26); ARTERIAL BLOOD O2 SATURATION 92.8 % (94-98); ARTERIAL BLOOD PCO2 38.3 mmHg (35-45); ARTERIAL BLOOD PH 7.47 (7.35-7.45); ARTERIAL BLOOD PO2 60.8 mmHg (80-100); ARTERIAL BLOOD TOTAL CO2 28.4 mmol/L (21-25)
[2017-08-31 05:27] LABS: ARTERIAL BLOOD FIO2 40%
[2017-08-31 05:47] LABS: ALANINE AMINOTRANSFERASE 25 U/L (9-52); ALKALINE PHOSPHATASE 91 U/L (38-126); ANION GAP 13 (5-19); ASPARTATE AMINO TRANSFERASE 14 U/L (14-36); BILIRUBIN,DIRECT 0.3 mg/dL (0.0-0.4); BILIRUBIN,TOTAL 0.3 mg/dL (0.2-1.3); BLOOD UREA NITROGEN 14 mg/dL (7-20); CALCIUM 9.1 mg/dL (8.4-10.2); CARBON DIOXIDE 27 mmol/L (22-30); CHLORIDE 98 mmol/L (98-107); GLUCOSE 245 mg/dL (75-110); PHOSPHORUS 2.8 mg/dL (2.5-4.5); SODIUM 137.5 mmol/L (137-145); TOTAL PROTEIN 6.1 g/dL (6.3-8.2)
[2017-08-31 05:48] LABS: POTASSIUM 3.1 mmol/L (3.6-5.0)
--- NOTE | 2017-08-31 07:46 | RADIOLOGY REPORT (SQ) ---
EXAM DESCRIPTION: XR CHEST 1 VIEW CLINICAL HISTORY: 62 years Female, pna resp failure COMPARISON: One day prior. NUMBER OF VIEWS/TECHNIQUE: 1/AP FINDINGS: Moderate opacity of the left lower hemithorax, small opacity of the left upper lobe, prominent interstitium, adequate appearing endotracheal tube, likely adequate enteric tube obscured at its tip, right subclavian central line tip at the cavoatrial junction. No pneumothorax. No acute bone defect. IMPRESSION: Interval worsening includes moderate left lower lobar opacity.
[2017-08-31] MEDS: POTASSI CL 20 MEQ/50 ML RIDER 20 MEQ/50 ML RTUPB IV SCH ×2 (07:55→09:19)
[2017-08-31] MEDS: IPRATROPIUM/ALBUTEROL 0.5-2.5 MG/3 ML AMPUL NEB PRN ×2 (09:14→20:39)
[2017-08-31] MEDS: RINGERS SOLUTION,LACTATED 1,000 ML IV PRN ×2 (09:23→17:05)
[2017-08-31] MEDS: ENOXAPARIN SODIUM INJ 40 MG/0.4 ML DISP.SYRIN SUBCUT SCH (09:25)
[2017-08-31] MEDS: METOPROLOL TARTRATE 25 MG TABLET NG SCH ×2 (09:27→21:06)
[2017-08-31] MEDS: PANTOPRAZOLE SODIUM 40 MG VIAL IV SCH (09:31)
[2017-08-31] MEDS: DORZOLAMIDE HCL 2%/TIMOLOL MALEAT 0.5% OPH SOLN 10 ML OU SCH ×2 (09:31→21:07)
[2017-08-31] MEDS: NICOTINE 14 MG/24 HR PATCH.TD24 TD SCH (09:32)
[2017-08-31] MEDS: HYDROCHLOROTHIAZIDE 25 MG TABLET NG SCH (09:32)
[2017-08-31] MEDS: AMLODIPINE BESYLATE 10 MG TABLET NG SCH (09:32)
[2017-08-31] MEDS: VALSARTAN 160 MG TABLET NG SCH (09:33)
[2017-08-31] MEDS ORDERED: MIDAZOLAM HCL 50 MG/100 ML RTUINJ IV-INFUSE PRN (09:52)
--- NOTE | 2017-08-31 13:07 | PDOC PROGRESS REPORT ---
Subjective Progress Note for:: 08/31/17 Subjective:: Patient admitted with acute respiratory failure after she was found hypoglycemic and unresponsive. She remains on mechanical ventilation today. She is still sedated and requiring high FIO2 currently at 40% Chest x-ray shows interval worsening of the left lower lobe opacity meropenem was added to her regimen yesterday Reason For Visit: ACUTE RESPIRATORY FAIURE HYPOGLYCEMIA Physical Exam Vital Signs: Temp Pulse Resp BP Pulse Ox 98.1 F 81 18 158/64 H 97 08/31/17 12:00 08/31/17 10:00 08/31/17 12:00 08/31/17 11:56 08/31/17 12:27 Intake & Output 08/30/17 08/31/17 09/01/17 06:59 06:59 06:59 Intake Total 1430 4396 Output Total 3925 3160 325 Balance -2495 1236 -325 Weight 96.3 kg 97.6 kg General appearance: PRESENT: no acute distress - Intubated Head exam: PRESENT: atraumatic Eye exam: PRESENT: PERRLA Respiratory exam: PRESENT: decreased breath sounds, other - Mechanical ventilation. ABSENT: wheezes Cardiovascular exam: PRESENT: RRR. ABSENT: diastolic murmur, rubs, systolic murmur GI/Abdominal exam: PRESENT: normal bowel sounds, soft. ABSENT: distended, guarding, mass, organolmegaly, rebound, tenderness Rectal exam: PRESENT: deferred Neurological exam: PRESENT: other - Sedated Skin exam: PRESENT: dry, intact, warm. ABSENT: cyanosis, rash Results Laboratory Results: 08/31/17 05:05 08/31/17 05:05 08/31/17 08/31/17 08/31/17 05:05 05:05 05:05 WBC 11.9 H RBC 4.46 Hgb 13.6 Hct 40.7 MCV 91 MCH 30.4 MCHC 33.3 RDW 14.0 Plt Count 224 Seg Neutrophils % 80.2 H Lymphocytes % 8.5 L Monocytes % 8.4 Eosinophils % 2.5 Basophils % 0.4 Absolute Neutrophils 9.5 H Absolute Lymphocytes 1.0 Absolute Monocytes 1.0 Absolute Eosinophils 0.3 Absolute Basophils 0.0 Carbonic Acid 1.15 HCO3/H2CO3 Ratio 23:1 ABG pH 7.47 H ABG pCO2 38.3 ABG pO2 60.8 L ABG HCO3 27.2 H ABG O2 Saturation 92.8 L ABG Base Excess 3.5 FiO2 40% Sodium 137.5 Potassium 3.1 L Chloride 98 Carbon Dioxide 27 Anion Gap 13 BUN 14 Creatinine 0.76 Est GFR ( Amer) > 60 Est GFR (Non-Af Amer) > 60 Glucose 245 H Calcium 9.1 Phosphorus 2.8 Magnesium 1.9 Total Bilirubin 0.3 AST 14 ALT 25 Alkaline Phosphatase 91 Total Protein 6.1 L Albumin 3.0 L 08/31/17 05:05 NT-Pro-B Natriuret Pep 304 Impressions: KUB X-Ray 08/28/17 00:00 IMPRESSION: NG tube tip overlies the antral region of the stomach. No free air identified. Head CTA 08/28/17 15:37 IMPRESSION: NO CTA EVIDENCE OF STENOSIS OR ANEURYSM OF THE [place]. Chest/Abdomen CTA 08/29/17 00:00 IMPRESSION: Multiple subcentimeter pulmonary nodules bilaterally Bandlike dense consolidation atelectasis versus pneumonia in the medial left upper lobe, left posterior costophrenic sulcus and medial right lung base. No CT angio evidence of thoracic aortic dissection or acute pulmonary emboli. Chest X-Ray 08/31/17 06:00 IMPRESSION: Interval worsening includes moderate left lower lobar opacity. Assessment & Plan - Diagnosis (1) Acute respiratory failure with hypercapnia Is this a current diagnosis for this admission?: Yes Plan: Patient was intubated in the emergency room she was found to be hypercapnic with respiratory failure. CT shows multiple pulmonary nodules bilaterally. Bandlike dense consolidation atelectasis versus pneumonia in the medial left upper lobe left posterior costophrenic phrenic sulcus medial right lung base. There is no CT evidence of thoracic aortic dissection or pulmonary emboli. We will continue current empiric antibiotics as well as mechanical ventilation support. She will have a weaning trial today and the plan is for a possible bronchoscopy if she still feels to wean by (2) Hypoglycemia Is this a current diagnosis for this admission?: Yes Plan: This is resolved (3) Hyperkalemia Is this a current diagnosis for this admission?: Yes (4) Acidosis Is this a current diagnosis for this admission?: Yes (5) Pneumonia Qualifiers: Lung location: unspecified part of lung Is this a current diagnosis for this admission?: Yes Plan: Multifocal possibly aspiration. Meropenem was added to her regimen. We will continue to follow with serial x-rays. Will follow up on sputum cultures (6) Diabetes Qualifiers: Diabetes mellitus type: type 2 Is this a current diagnosis for this admission?: Yes Plan: Blood sugar is not well controlled. Will add some Lantus to have his regimen and continue with a sliding scale insulin (7) Urinary tract infection due to Enterococcus Is this a current diagnosis for this admission?: Yes Plan: We will continue current antibiotics - Time Time Spent with patient: 25-34 minutes Medications reviewed and adjusted accordingly: Yes Anticipated discharge: Home - Inpatient Certification Based on my medical assessment, after consideration of the patient's comorbidities, presenting symptoms, or acuity I expect that the services needed warrant INPATIENT care.: Yes Medical Necessity: Significant Comorbidiites Make Outpatient Treatment Too Risky , Need Close Monitoring Due to Risk of Patient Decompensation
--- NOTE | 2017-08-31 13:38 | PDOC PROGRESS REPORT ---
Subjective Progress Note for:: 08/31/17 Subjective:: Unchanged, remains intubated and sedated Reason For Visit: ACUTE RESPIRATORY FAIURE HYPOGLYCEMIA Physical Exam Vital Signs: Temp Pulse Resp BP Pulse Ox 98.6 F 83 16 138/54 H 95 08/31/17 08:00 08/31/17 08:00 08/31/17 08:00 08/31/17 08:00 08/31/17 08:00 Intake & Output 08/30/17 08/31/17 09/01/17 06:59 06:59 06:59 Intake Total 1430 4396 Output Total 3925 3160 100 Balance -2495 1236 -100 Weight 96.3 kg 97.6 kg General appearance: PRESENT: no acute distress, disheveled, obese. ABSENT: cooperative Head exam: PRESENT: atraumatic, normocephalic Eye exam: PRESENT: conjunctiva pale. ABSENT: nystagmus, periorbital swelling, scleral icterus Mouth exam: PRESENT: dry mucosa, neck supple, tongue midline, other - ET tube in place Neck exam: ABSENT: carotid bruit, JVD, lymphadenopathy, thyromegaly, tracheal deviation, tracheostomy Respiratory exam: PRESENT: decreased breath sounds, prolonged expiratory phas, rales, rhonchi, unlabored. ABSENT: retraction, stridor Cardiovascular exam: PRESENT: RRR, +S1, +S2, tachycardia Pulses: PRESENT: normal radial pulses GI/Abdominal exam: PRESENT: hypoactive bowel sounds, soft Extremities exam: ABSENT: calf tenderness, clubbing, joint swelling Musculoskeletal exam: ABSENT: deformity, dislocation Neurological exam: ABSENT: awake, oriented to person Skin exam: PRESENT: dry, warm Results Laboratory Results: 08/31/17 05:05 08/31/17 05:05 08/31/17 08/31/17 08/31/17 05:05 05:05 05:05 WBC 11.9 H RBC 4.46 Hgb 13.6 Hct 40.7 MCV 91 MCH 30.4 MCHC 33.3 RDW 14.0 Plt Count 224 Seg Neutrophils % 80.2 H Lymphocytes % 8.5 L Monocytes % 8.4 Eosinophils % 2.5 Basophils % 0.4 Absolute Neutrophils 9.5 H Absolute Lymphocytes 1.0 Absolute Monocytes 1.0 Absolute Eosinophils 0.3 Absolute Basophils 0.0 Carbonic Acid 1.15 HCO3/H2CO3 Ratio 23:1 ABG pH 7.47 H ABG pCO2 38.3 ABG pO2 60.8 L ABG HCO3 27.2 H ABG O2 Saturation 92.8 L ABG Base Excess 3.5 FiO2 40% Sodium 137.5 Potassium 3.1 L Chloride 98 Carbon Dioxide 27 Anion Gap 13 BUN 14 Creatinine 0.76 Est GFR ( Amer) > 60 Est GFR (Non-Af Amer) > 60 Glucose 245 H Calcium 9.1 Phosphorus 2.8 Magnesium 1.9 Total Bilirubin 0.3 AST 14 ALT 25 Alkaline Phosphatase 91 Total Protein 6.1 L Albumin 3.0 L 08/31/17 05:05 NT-Pro-B Natriuret Pep 304 Impressions: KUB X-Ray 08/28/17 00:00 IMPRESSION: NG tube tip overlies the antral region of the stomach. No free air identified. Head CTA 08/28/17 15:37 IMPRESSION: NO CTA EVIDENCE OF STENOSIS OR ANEURYSM OF THE [place]. Chest/Abdomen CTA 08/29/17 00:00 IMPRESSION: Multiple subcentimeter pulmonary nodules bilaterally Bandlike dense consolidation atelectasis versus pneumonia in the medial left upper lobe, left posterior costophrenic sulcus and medial right lung base. No CT angio evidence of thoracic aortic dissection or acute pulmonary emboli. Chest X-Ray 08/31/17 06:00 IMPRESSION: Interval worsening includes moderate left lower lobar opacity. Assessment & Plan - Diagnosis (1) Lung mass Is this a current diagnosis for this admission?: Yes Plan: L hilar enlargement CT (2) Acute respiratory failure with hypercapnia Is this a current diagnosis for this admission?: Yes Plan: No improvement in mental status, remains unresponsive (3) Diabetes Qualifiers: Diabetes mellitus type: type 2 Is this a current diagnosis for this admission?: Yes Plan: per pcp (4) Glaucoma Is this a current diagnosis for this admission?: Yes Plan: continue home meds (5) Hypertension Is this a current diagnosis for this admission?: Yes (6) Chronic, continuous use of opioids Is this a current diagnosis for this admission?: Yes Plan: resume vicoden - Time Total Critical Time (Minutes): 40
[2017-08-31] MEDS ORDERED: INSULIN GLARGINE,HUM.REC.ANLOG 300 UNIT/3 ML INSULN.PEN SUBCUT ONE (15:00)
[2017-08-31] MEDS: ACETYLCYSTEINE 20% SOLN 800 MG/4 ML VIAL.NEB NEB SCH (20:39)
[2017-08-31] MEDS: SIMVASTATIN 40 MG TABLET NG SCH (21:06)
[2017-08-31] MEDS: LEVOFLOXACIN 500 MG/D5W RTU 500 MG/100 ML RTUPB IV SCH (21:07)
[2017-08-31] MEDS: LATANOPROST 0.005% OPH SOLN 2.5 ML OU SCH (21:07)
[2017-08-31] MEDS: INSULIN GLARGINE,HUM.REC.ANLOG 300 UNIT/3 ML INSULN.PEN SUBCUT SCH (21:08)
[2017-09-01] MEDS: INSULIN REG, HUMAN 100 UNIT/ML 3 ML VIAL (PYX) SUBCUT PRN ×4 (00:15→18:18)
[2017-09-01] MEDS: HYDROCODONE/ACETAMINOPHEN 7.5-325 MG TABLET NG SCH ×4 (00:18→17:23)
[2017-09-01] MEDS: PROPOFOL 100 ML IV PRN ×4 (02:41→20:35)
[2017-09-01] MEDS: RINGERS SOLUTION,LACTATED 1,000 ML IV PRN ×2 (05:25→19:35)
[2017-09-01] MEDS: MEROPENEM 1 GM in NORMAL SALINE 50 ML IV SCH ×3 (05:33→21:25)
[2017-09-01 06:02] LABS: ARTERIAL BLOOD BASE EXCESS 6.4 mmol/L; ARTERIAL BLOOD H2CO3 1.14 mmol/L (1.05-1.35); ARTERIAL BLOOD HCO3 29.6 mmol/L (20-26); ARTERIAL BLOOD PCO2 37.9 mmHg (35-45); ARTERIAL BLOOD PH 7.51 (7.35-7.45); ARTERIAL BLOOD PO2 67.1 mmHg (80-100); ARTERIAL BLOOD TOTAL CO2 30.8 mmol/L (21-25)
[2017-09-01 06:14] LABS: ARTERIAL BLOOD FIO2 40%
[2017-09-01 06:25] LABS: ANION GAP 10 (5-19); BLOOD UREA NITROGEN 11 mg/dL (7-20); CALCIUM 9.3 mg/dL (8.4-10.2); CARBON DIOXIDE 29 mmol/L (22-30); CHLORIDE 100 mmol/L (98-107); GLUCOSE 226 mg/dL (75-110); POTASSIUM 3.2 mmol/L (3.6-5.0); SODIUM 139.1 mmol/L (137-145); TRIGLYCERIDES 180 mg/dL (<150)
[2017-09-01 06:42] LABS: ABSOLUTE BASOPHILS # (AUTO) 0.1 10^3/uL (0.0-0.2); ABSOLUTE EOSINOPHILS # (AUTO) 0.4 10^3/uL (0.0-0.6); ABSOLUTE LYMPHOCYTES (AUTO) 1.2 10^3/uL (0.5-4.7); BASOPHILS % (AUTO) 0.5 % (0-2); EOSINOPHILS % (AUTO) 3.6 % (0-6); HEMATOCRIT 39.5 % (36.0-47.0); HEMOGLOBIN 13.4 g/dL (12.0-15.5); LYMPHOCYTES % (AUTO) 10.6 % (13-45); MEAN CORPUSCULAR HEMOGLOBIN 30.7 pg (27.0-33.4); MEAN CORPUSCULAR HGB CONC 33.8 g/dL (32.0-36.0); MEAN CORPUSCULAR VOLUME 91 fl (80-97); MONOCYTES % (AUTO) 8.9 % (3-13); PLATELET COUNT 210 10^3/uL (150-450); RED BLOOD COUNT 4.36 10^6/uL (3.72-5.28); RED CELL DISTRIBUTION WIDTH 14.3 % (11.5-14.0); SEGMENTED NEUTROPHILS % (AUTO) 76.4 % (42-78); TOTAL CELLS COUNTED % (AUTO) 100 %; WHITE BLOOD COUNT 11.7 10^3/uL (4.0-10.5)
--- NOTE | 2017-09-01 06:46 | RADIOLOGY REPORT (SQ) ---
EXAM DESCRIPTION: XR CHEST 1 VIEW CLINICAL HISTORY: 62 years Female, resp failure/pna COMPARISON: One day prior. NUMBER OF VIEWS/TECHNIQUE: 1/AP FINDINGS: Multifocal moderate airspace opacities includes moderate opacity-effusion of the left lower hemithorax and moderate wedge-shaped opacity of the left upper hemithorax, normal cardiac silhouette size with leftward position, adequate appearing endotracheal tube, 5.4 cm from the maulik, adequate appearing enteric tube, right subclavian central line tip at the cavoatrial junction. No pneumothorax. No acute bone defect. IMPRESSION: No significant change.
[2017-09-01] MEDS: ACETYLCYSTEINE 20% SOLN 800 MG/4 ML VIAL.NEB NEB SCH ×2 (08:20→19:28)
[2017-09-01] MEDS: IPRATROPIUM/ALBUTEROL 0.5-2.5 MG/3 ML AMPUL NEB PRN ×2 (08:20→19:28)
[2017-09-01] MEDS ORDERED: MAGNESIUM SULFATE 4 GM/100 ML RTUPB IV ONE (09:00)
[2017-09-01] MEDS ORDERED: MAGNESIUM SULFATE/D5W 1 GM/100 ML RTUPB IV SCH (09:00)
[2017-09-01] MEDS: METOPROLOL TARTRATE 25 MG TABLET NG SCH ×2 (09:37→21:23)
[2017-09-01] MEDS: ENOXAPARIN SODIUM INJ 40 MG/0.4 ML DISP.SYRIN SUBCUT SCH (09:45)
[2017-09-01] MEDS: NICOTINE 14 MG/24 HR PATCH.TD24 TD SCH (09:48)
[2017-09-01] MEDS: AMLODIPINE BESYLATE 10 MG TABLET NG SCH (09:51)
[2017-09-01] MEDS: POTASSI CL 20 MEQ/50 ML RIDER 20 MEQ/50 ML RTUPB IV SCH ×2 (09:54→10:54)
[2017-09-01] MEDS: DORZOLAMIDE HCL 2%/TIMOLOL MALEAT 0.5% OPH SOLN 10 ML OU SCH ×2 (09:57→21:24)
[2017-09-01] MEDS: INSULIN GLARGINE,HUM.REC.ANLOG 300 UNIT/3 ML INSULN.PEN SUBCUT SCH ×2 (10:00→21:25)
[2017-09-01] MEDS ORDERED: PANTOPRAZOLE SODIUM 40 MG VIAL IV ONE (10:30)
[2017-09-01] MEDS ORDERED: VALSARTAN 160 MG TABLET NG ONE (11:00)
[2017-09-01] MEDS ORDERED: LACTULOSE SYRUP 20 GM/30 ML UDCUP NG PRN (12:00)
--- NOTE | 2017-09-01 12:12 | PDOC PROGRESS REPORT ---
Subjective Progress Note for:: 09/01/17 Subjective:: Patient admitted with acute respiratory failure after she was found hypoglycemic and unresponsive. She remains on mechanical ventilation today. She is still sedated and requiring 40% FIO2 Failed weaning trial again and at this time plan is for a bronch in am Chest x-ray shows interval worsening of the left lower lobe opacity meropenem was added to her regimen Reason For Visit: ACUTE RESPIRATORY FAIURE HYPOGLYCEMIA Physical Exam Vital Signs: Temp Pulse Resp BP Pulse Ox 98.2 F 99 16 151/63 H 98 09/01/17 10:06 09/01/17 10:00 09/01/17 10:06 09/01/17 10:06 09/01/17 11:50 Intake & Output 08/31/17 09/01/17 09/02/17 06:59 06:59 06:59 Intake Total 4396 2991 Output Total 3160 3855 680 Balance 1236 -864 -680 Weight 97.6 kg 96.3 kg General appearance: PRESENT: no acute distress, obese, well-developed, other - intubated Head exam: PRESENT: atraumatic, normocephalic Mouth exam: PRESENT: neck supple Neck exam: ABSENT: carotid bruit, JVD, lymphadenopathy, thyromegaly Respiratory exam: PRESENT: decreased breath sounds, unlabored, other - mechanical ventilation GI/Abdominal exam: PRESENT: normal bowel sounds, soft. ABSENT: distended, guarding, mass, organolmegaly, rebound, tenderness Rectal exam: PRESENT: deferred Neurological exam: PRESENT: other - sedated Results Laboratory Results: 09/01/17 05:39 09/01/17 05:39 09/01/17 09/01/17 09/01/17 05:39 05:39 05:39 WBC 11.7 H RBC 4.36 Hgb 13.4 Hct 39.5 MCV 91 MCH 30.7 MCHC 33.8 RDW 14.3 H Plt Count 210 Seg Neutrophils % 76.4 Lymphocytes % 10.6 L Monocytes % 8.9 Eosinophils % 3.6 Basophils % 0.5 Absolute Neutrophils 9.0 H Absolute Lymphocytes 1.2 Absolute Monocytes 1.0 Absolute Eosinophils 0.4 Absolute Basophils 0.1 Carbonic Acid 1.14 HCO3/H2CO3 Ratio 25:1 ABG pH 7.51 H ABG pCO2 37.9 ABG pO2 67.1 L ABG HCO3 29.6 H ABG O2 Saturation 95.0 ABG Base Excess 6.4 FiO2 40% Sodium 139.1 Potassium 3.2 L Chloride 100 Carbon Dioxide 29 Anion Gap 10 BUN 11 Creatinine 0.67 Est GFR ( Amer) > 60 Est GFR (Non-Af Amer) > 60 Glucose 226 H Calcium 9.3 Magnesium 1.4 L Triglycerides 180 H 08/31/17 05:05 NT-Pro-B Natriuret Pep 304 Impressions: KUB X-Ray 08/28/17 00:00 IMPRESSION: NG tube tip overlies the antral region of the stomach. No free air identified. Head CTA 08/28/17 15:37 IMPRESSION: NO CTA EVIDENCE OF STENOSIS OR ANEURYSM OF THE [place]. Chest/Abdomen CTA 08/29/17 00:00 IMPRESSION: Multiple subcentimeter pulmonary nodules bilaterally Bandlike dense consolidation atelectasis versus pneumonia in the medial left upper lobe, left posterior costophrenic sulcus and medial right lung base. No CT angio evidence of thoracic aortic dissection or acute pulmonary emboli. Chest X-Ray 09/01/17 06:00 IMPRESSION: No significant change. Assessment & Plan - Diagnosis (1) Acute respiratory failure with hypercapnia Is this a current diagnosis for this admission?: Yes Plan: Patient was intubated in the emergency room she was found to be hypercapnic with respiratory failure. CT shows multiple pulmonary nodules bilaterally. Bandlike dense consolidation atelectasis versus pneumonia in the medial left upper lobe left posterior costophrenic phrenic sulcus medial right lung base. There is no CT evidence of thoracic aortic dissection or pulmonary emboli. We will continue current empiric antibiotics as well as mechanical ventilation support. She failed weaning trial today and the plan is for a possible bronchoscopy in am if she still fails to wean (2) Hypoglycemia Is this a current diagnosis for this admission?: Yes Plan: Presenting symptom, resolved (3) Hyperkalemia Is this a current diagnosis for this admission?: Yes Plan: Resolved, etiology of which is still unclear (4) Acidosis Is this a current diagnosis for this admission?: Yes (5) Pneumonia Qualifiers: Lung location: unspecified part of lung Is this a current diagnosis for this admission?: Yes Plan: Multifocal possibly aspiration. Meropenem was added to Levaquin for anaerobic, atypical, gram positive and negative coverages. We will continue to follow with serial x-rays. Will follow up on sputum cultures (6) Diabetes Qualifiers: Diabetes mellitus type: type 2 Is this a current diagnosis for this admission?: Yes Plan: Blood sugar is not well controlled. Will add some Lantus to her regimen and continue with a sliding scale insulin (7) Urinary tract infection due to Enterococcus Is this a current diagnosis for this admission?: Yes Plan: We will continue Levaquin - Time Time Spent with patient: 25-34 minutes Medications reviewed and adjusted accordingly: Yes Anticipated discharge: Home - Inpatient Certification Based on my medical assessment, after consideration of the patient's comorbidities, presenting symptoms, or acuity I expect that the services needed warrant INPATIENT care.: Yes Medical Necessity: Need for IV Antibiotics, Other - mechanical ventilation
[2017-09-01] MEDS ORDERED: SENNOSIDES/DOCUSATE 8.6-50 MG 1 EACH TABLET NG ONE (12:30)
--- NOTE | 2017-09-01 13:15 | PDOC PROGRESS REPORT ---
Subjective Progress Note for:: 09/01/17 Subjective:: Unchanged, remains intubated and sedated Reason For Visit: ACUTE RESPIRATORY FAIURE HYPOGLYCEMIA Physical Exam Vital Signs: Temp Pulse Resp BP Pulse Ox 98.6 F 77 16 149/70 H 99 09/01/17 08:00 09/01/17 08:00 09/01/17 08:00 09/01/17 08:00 09/01/17 08:00 Intake & Output 08/31/17 09/01/17 09/02/17 06:59 06:59 06:59 Intake Total 4396 2991 Output Total 3160 3855 225 Balance 1236 -864 -225 Weight 97.6 kg 96.3 kg General appearance: PRESENT: no acute distress, disheveled, obese. ABSENT: cooperative Head exam: PRESENT: atraumatic Eye exam: PRESENT: conjunctiva pale. ABSENT: nystagmus, periorbital swelling, scleral icterus Mouth exam: PRESENT: dry mucosa, neck supple, tongue midline, other - ET tube Neck exam: ABSENT: carotid bruit, JVD, lymphadenopathy, thyromegaly, tracheal deviation, tracheostomy Respiratory exam: PRESENT: decreased breath sounds, prolonged expiratory phas, rales, rhonchi, unlabored. ABSENT: retraction, stridor Cardiovascular exam: PRESENT: RRR, +S1, +S2 Pulses: PRESENT: normal radial pulses GI/Abdominal exam: PRESENT: hypoactive bowel sounds, soft Extremities exam: ABSENT: calf tenderness, clubbing, joint swelling Musculoskeletal exam: ABSENT: deformity, dislocation Neurological exam: ABSENT: awake, oriented to person Skin exam: PRESENT: dry, warm Results Laboratory Results: 09/01/17 05:39 09/01/17 05:39 09/01/17 09/01/17 09/01/17 05:39 05:39 05:39 WBC 11.7 H RBC 4.36 Hgb 13.4 Hct 39.5 MCV 91 MCH 30.7 MCHC 33.8 RDW 14.3 H Plt Count 210 Seg Neutrophils % 76.4 Lymphocytes % 10.6 L Monocytes % 8.9 Eosinophils % 3.6 Basophils % 0.5 Absolute Neutrophils 9.0 H Absolute Lymphocytes 1.2 Absolute Monocytes 1.0 Absolute Eosinophils 0.4 Absolute Basophils 0.1 Carbonic Acid 1.14 HCO3/H2CO3 Ratio 25:1 ABG pH 7.51 H ABG pCO2 37.9 ABG pO2 67.1 L ABG HCO3 29.6 H ABG O2 Saturation 95.0 ABG Base Excess 6.4 FiO2 40% Sodium 139.1 Potassium 3.2 L Chloride 100 Carbon Dioxide 29 Anion Gap 10 BUN 11 Creatinine 0.67 Est GFR ( Amer) > 60 Est GFR (Non-Af Amer) > 60 Glucose 226 H Calcium 9.3 Magnesium 1.4 L Triglycerides 180 H 08/31/17 05:05 NT-Pro-B Natriuret Pep 304 Impressions: KUB X-Ray 08/28/17 00:00 IMPRESSION: NG tube tip overlies the antral region of the stomach. No free air identified. Head CTA 08/28/17 15:37 IMPRESSION: NO CTA EVIDENCE OF STENOSIS OR ANEURYSM OF THE [place]. Chest/Abdomen CTA 08/29/17 00:00 IMPRESSION: Multiple subcentimeter pulmonary nodules bilaterally Bandlike dense consolidation atelectasis versus pneumonia in the medial left upper lobe, left posterior costophrenic sulcus and medial right lung base. No CT angio evidence of thoracic aortic dissection or acute pulmonary emboli. Chest X-Ray 09/01/17 06:00 IMPRESSION: No significant change. Assessment & Plan - Diagnosis (1) Lung mass Is this a current diagnosis for this admission?: Yes Plan: L hilar enlargement CT (2) Acute respiratory failure with hypercapnia Is this a current diagnosis for this admission?: Yes Plan: No improvement in mental status, remains unresponsive (3) Diabetes Qualifiers: Diabetes mellitus type: type 2 Is this a current diagnosis for this admission?: Yes Plan: per pcp (4) Glaucoma Is this a current diagnosis for this admission?: Yes Plan: continue home meds (5) Hypertension Is this a current diagnosis for this admission?: Yes (6) Chronic, continuous use of opioids Is this a current diagnosis for this admission?: Yes Plan: resume vicoden - Time Total Critical Time (Minutes): 45
[2017-09-01] MEDS: SENNOSIDES/DOCUSATE 8.6-50 MG 1 EACH TABLET NG SCH (17:23)
[2017-09-01] MEDS: SIMVASTATIN 40 MG TABLET NG SCH (21:24)
[2017-09-01] MEDS: LATANOPROST 0.005% OPH SOLN 2.5 ML OU SCH (21:30)
[2017-09-01] MEDS: LEVOFLOXACIN 500 MG/D5W RTU 500 MG/100 ML RTUPB IV SCH (21:30)
[2017-09-02] MEDS: INSULIN REG, HUMAN 100 UNIT/ML 3 ML VIAL (PYX) SUBCUT PRN ×4 (00:05→23:23)
[2017-09-02] MEDS: HYDROCODONE/ACETAMINOPHEN 7.5-325 MG TABLET NG SCH ×5 (00:05→23:23)
[2017-09-02] MEDS: PROPOFOL 100 ML IV PRN ×5 (00:06→23:25)
[2017-09-02] MEDS: MEROPENEM 1 GM in NORMAL SALINE 50 ML IV SCH ×3 (05:46→21:27)
[2017-09-02 06:06] LABS: ARTERIAL BLOOD BASE EXCESS 4.6 mmol/L; ARTERIAL BLOOD H2CO3 1.13 mmol/L (1.05-1.35); ARTERIAL BLOOD O2 SATURATION 96.1 % (94-98); ARTERIAL BLOOD PCO2 37.4 mmHg (35-45); ARTERIAL BLOOD PH 7.49 (7.35-7.45); ARTERIAL BLOOD TOTAL CO2 29.1 mmol/L (21-25)
[2017-09-02 06:07] LABS: ABSOLUTE BASOPHILS # (AUTO) 0.1 10^3/uL (0.0-0.2); ABSOLUTE EOSINOPHILS # (AUTO) 0.6 10^3/uL (0.0-0.6); ABSOLUTE LYMPHOCYTES (AUTO) 1.3 10^3/uL (0.5-4.7); ABSOLUTE NEUT (AUTO) 6.9 10^3/uL (1.7-8.2); BASOPHILS % (AUTO) 0.9 % (0-2); EOSINOPHILS % (AUTO) 5.8 % (0-6); HEMATOCRIT 38.9 % (36.0-47.0); HEMOGLOBIN 13.1 g/dL (12.0-15.5); LYMPHOCYTES % (AUTO) 13.7 % (13-45); MEAN CORPUSCULAR HEMOGLOBIN 30.6 pg (27.0-33.4); MEAN CORPUSCULAR HGB CONC 33.5 g/dL (32.0-36.0); MEAN CORPUSCULAR VOLUME 91 fl (80-97); MONOCYTES % (AUTO) 9.9 % (3-13); PLATELET COUNT 220 10^3/uL (150-450); RED BLOOD COUNT 4.27 10^6/uL (3.72-5.28); RED CELL DISTRIBUTION WIDTH 13.9 % (11.5-14.0); SEGMENTED NEUTROPHILS % (AUTO) 69.7 % (42-78); TOTAL CELLS COUNTED % (AUTO) 100 %; WHITE BLOOD COUNT 9.9 10^3/uL (4.0-10.5)
[2017-09-02 06:20] LABS: ARTERIAL BLOOD FIO2 40%
[2017-09-02 06:33] LABS: ANION GAP 9 (5-19); BLOOD UREA NITROGEN 11 mg/dL (7-20); CARBON DIOXIDE 30 mmol/L (22-30); CHLORIDE 102 mmol/L (98-107); GLUCOSE 233 mg/dL (75-110); POTASSIUM 3.4 mmol/L (3.6-5.0); SODIUM 140.5 mmol/L (137-145)
[2017-09-02] MEDS ORDERED: POTASSI CL 20 MEQ/50 ML RIDER 20 MEQ/50 ML RTUPB IV ONE (06:44)
[2017-09-02] MEDS ORDERED: PANTOPRAZOLE SODIUM 40 MG VIAL IV ONE (07:30)
[2017-09-02] MEDS: RINGERS SOLUTION,LACTATED 1,000 ML IV PRN ×2 (07:32→17:02)
[2017-09-02] MEDS: POTASSIUM CHLORIDE 20 MEQ/50 ML RTU IV SCH ×2 (07:33→08:33)
--- NOTE | 2017-09-02 07:48 | RADIOLOGY REPORT (SQ) ---
EXAM DESCRIPTION: XR CHEST 1 VIEW CLINICAL HISTORY: 62 years Female, resp fail COMPARISON: One day prior. NUMBER OF VIEWS/TECHNIQUE: 1/AP FINDINGS: Small multifocal patchiness includes a left lower lobe and left upper lobe, normal cardiac silhouette, tip of an endotracheal tube is 7.3 cm from the maulik, right subclavian central line tip at the cavoatrial junction, adequate appearing enteric tube. No pneumothorax. No acute bone defect. IMPRESSION: Small multifocal patchiness with some improvement.
[2017-09-02] MEDS: ACETYLCYSTEINE 20% SOLN 800 MG/4 ML VIAL.NEB NEB SCH ×2 (08:36→19:54)
[2017-09-02] MEDS: IPRATROPIUM/ALBUTEROL 0.5-2.5 MG/3 ML AMPUL NEB PRN ×2 (08:36→19:54)
[2017-09-02] MEDS: AMLODIPINE BESYLATE 10 MG TABLET NG SCH (09:09)
[2017-09-02] MEDS: METOPROLOL TARTRATE 25 MG TABLET NG SCH ×2 (09:10→21:25)
[2017-09-02] MEDS: SENNOSIDES/DOCUSATE 8.6-50 MG 1 EACH TABLET NG SCH ×2 (09:10→17:01)
[2017-09-02] MEDS: NICOTINE 14 MG/24 HR PATCH.TD24 TD SCH (09:10)
[2017-09-02] MEDS: DORZOLAMIDE HCL 2%/TIMOLOL MALEAT 0.5% OPH SOLN 10 ML OU SCH ×2 (09:11→21:26)
[2017-09-02] MEDS: INSULIN GLARGINE,HUM.REC.ANLOG 300 UNIT/3 ML INSULN.PEN SUBCUT SCH ×2 (09:11→21:29)
[2017-09-02] MEDS: ENOXAPARIN SODIUM INJ 40 MG/0.4 ML DISP.SYRIN SUBCUT SCH (09:16)
[2017-09-02] MEDS: VALSARTAN 160 MG TABLET NG SCH (09:17)
[2017-09-02] MEDS ORDERED: PANTOPRAZOLE SODIUM 40 MG VIAL IV SCH (10:00)
--- NOTE | 2017-09-02 13:39 | PDOC PROGRESS REPORT ---
Subjective Progress Note for:: 09/02/17 Reason For Visit: ACUTE RESPIRATORY FAIURE HYPOGLYCEMIA Physical Exam Vital Signs: Temp Pulse Resp BP Pulse Ox 98.6 F 101 H 16 148/70 H 97 09/02/17 08:00 09/02/17 08:30 09/02/17 08:00 09/02/17 07:37 09/02/17 08:00 Intake & Output 09/01/17 09/02/17 09/03/17 06:59 06:59 06:59 Intake Total 2991 2574 Output Total 3855 3245 295 Balance -864 -671 -295 Weight 96.3 kg 96.8 kg Results Laboratory Results: 09/02/17 05:56 09/02/17 05:56 09/02/17 09/02/17 09/02/17 05:56 05:56 05:56 WBC 9.9 RBC 4.27 Hgb 13.1 Hct 38.9 MCV 91 MCH 30.6 MCHC 33.5 RDW 13.9 Plt Count 220 Seg Neutrophils % 69.7 Lymphocytes % 13.7 Monocytes % 9.9 Eosinophils % 5.8 Basophils % 0.9 Absolute Neutrophils 6.9 Absolute Lymphocytes 1.3 Absolute Monocytes 1.0 Absolute Eosinophils 0.6 Absolute Basophils 0.1 Carbonic Acid 1.13 HCO3/H2CO3 Ratio 24:1 ABG pH 7.49 H ABG pCO2 37.4 ABG pO2 75.0 L ABG HCO3 28.0 H ABG O2 Saturation 96.1 ABG Base Excess 4.6 FiO2 40% Sodium 140.5 Potassium 3.4 L Chloride 102 Carbon Dioxide 30 Anion Gap 9 BUN 11 Creatinine 0.67 Est GFR ( Amer) > 60 Est GFR (Non-Af Amer) > 60 Glucose 233 H Calcium 9.0 Magnesium 1.8 08/31/17 09/02/17 05:05 06:02 NT-Pro-B Natriuret Pep 304 306 Impressions: KUB X-Ray 08/28/17 00:00 IMPRESSION: NG tube tip overlies the antral region of the stomach. No free air identified. Head CTA 08/28/17 15:37 IMPRESSION: NO CTA EVIDENCE OF STENOSIS OR ANEURYSM OF [place]. Chest/Abdomen CTA 08/29/17 00:00 IMPRESSION: Multiple subcentimeter pulmonary nodules bilaterally Bandlike dense consolidation atelectasis versus pneumonia in the medial left upper lobe, left posterior costophrenic sulcus and medial right lung base. No CT angio evidence of thoracic aortic dissection or acute pulmonary emboli. Chest X-Ray 09/02/17 06:00 IMPRESSION: Small multifocal patchiness with some improvement. Assessment & Plan - Diagnosis (1) Lung mass Is this a current diagnosis for this admission?: Yes (2) Acute respiratory failure with hypercapnia Is this a current diagnosis for this admission?: Yes (3) Diabetes Qualifiers: Diabetes mellitus type: type 2 Is this a current diagnosis for this admission?: Yes (4) Glaucoma Is this a current diagnosis for this admission?: Yes (5) Hypertension Is this a current diagnosis for this admission?: Yes (6) Chronic, continuous use of opioids Is this a current diagnosis for this admission?: Yes
--- NOTE | 2017-09-02 14:58 | PDOC PROGRESS REPORT ---
Subjective Progress Note for:: 09/02/17 Subjective:: This is a 62 years old black male patient admitted for pleuritic chest pain due to multiple rib fractures on the left side secondary to mechanical accidental fall. Today I found the patient sitting on recliner he is awake alert and oriented but he complaining of chest pain. Reason For Visit: ACUTE RESPIRATORY FAIURE HYPOGLYCEMIA Physical Exam Vital Signs: Temp Pulse Resp BP Pulse Ox 99.7 F 99 13 149/65 H 98 09/02/17 14:07 09/02/17 08:35 09/02/17 14:07 09/02/17 14:07 09/02/17 14:07 Intake & Output 09/01/17 09/02/17 09/03/17 06:59 06:59 06:59 Intake Total 2991 2574 Output Total 3855 3245 755 Balance -864 -671 -755 Weight 96.3 kg 96.8 kg 96.8 kg General appearance: PRESENT: mild distress Head exam: PRESENT: atraumatic, normocephalic Eye exam: PRESENT: conjunctiva pink, EOMI, PERRLA. ABSENT: scleral icterus Respiratory exam: PRESENT: clear to auscultation daphnie. ABSENT: rales, rhonchi, wheezes Cardiovascular exam: PRESENT: RRR. ABSENT: diastolic murmur, rubs, systolic murmur GI/Abdominal exam: PRESENT: normal bowel sounds, soft. ABSENT: distended, guarding, mass, organolmegaly, rebound, tenderness Neurological exam: PRESENT: alert, awake, oriented to time, oriented to situation Psychiatric exam: PRESENT: normal mood Results Laboratory Results: 09/02/17 05:56 09/02/17 05:56 09/02/17 09/02/17 09/02/17 05:56 05:56 05:56 WBC 9.9 RBC 4.27 Hgb 13.1 Hct 38.9 MCV 91 MCH 30.6 MCHC 33.5 RDW 13.9 Plt Count 220 Seg Neutrophils % 69.7 Lymphocytes % 13.7 Monocytes % 9.9 Eosinophils % 5.8 Basophils % 0.9 Absolute Neutrophils 6.9 Absolute Lymphocytes 1.3 Absolute Monocytes 1.0 Absolute Eosinophils 0.6 Absolute Basophils 0.1 Carbonic Acid 1.13 HCO3/H2CO3 Ratio 24:1 ABG pH 7.49 H ABG pCO2 37.4 ABG pO2 75.0 L ABG HCO3 28.0 H ABG O2 Saturation 96.1 ABG Base Excess 4.6 FiO2 40% Sodium 140.5 Potassium 3.4 L Chloride 102 Carbon Dioxide 30 Anion Gap 9 BUN 11 Creatinine 0.67 Est GFR ( Amer) > 60 Est GFR (Non-Af Amer) > 60 Glucose 233 H Calcium 9.0 Magnesium 1.8 08/31/17 15:00 Tracheal Aspirate Gram Stain - Final 08/31/17 15:00 Tracheal Aspirate Sputum Culture - Final NORMAL ERIKA 08/31/17 09/02/17 05:05 06:02 NT-Pro-B Natriuret Pep 304 306 Impressions: KUB X-Ray 08/28/17 00:00 IMPRESSION: NG tube tip overlies the antral region of the stomach. No free air identified. Head CTA 08/28/17 15:37 IMPRESSION: NO CTA EVIDENCE OF STENOSIS OR ANEURYSM OF [place]. Chest/Abdomen CTA 08/29/17 00:00 IMPRESSION: Multiple subcentimeter pulmonary nodules bilaterally Bandlike dense consolidation atelectasis versus pneumonia in the medial left upper lobe, left posterior costophrenic sulcus and medial right lung base. No CT angio evidence of thoracic aortic dissection or acute pulmonary emboli. Chest X-Ray 09/02/17 06:00 IMPRESSION: Small multifocal patchiness with some improvement. Assessment & Plan - Diagnosis (1) Lung contusion Qualifiers: Encounter type: initial encounter Is this a current diagnosis for this admission?: Yes Plan: Most probably this is related to the injury and rib fracture he sustained. Pain control (2) Acute and chronic respiratory failure Qualifiers: Respiratory failure complication: hypoxia Qualified Code(s): J96.21 - Acute and chronic respiratory failure with hypoxia Is this a current diagnosis for this admission?: Yes Plan: Continue supplemental oxygen and breathing treatment. (3) Spinal stenosis Qualifiers: Spinal region: lumbar Is this a current diagnosis for this admission?: Yes Plan: Patient has had chronic low back pain due to spinal stenosis. He was given epidural injection and since then he has been complaining of bilateral upper and lower extremity weakness. (4) Pneumonia Qualifiers: Aspiration pneumonia type: unspecified Is this a current diagnosis for this admission?: Yes Plan: Continue antibiotics (5) Cardiomyopathy Qualifiers: Cardiomyopathy type: unspecified Qualified Code(s): I42.9 - Cardiomyopathy , unspecified Is this a current diagnosis for this admission?: Yes Plan: Continue current regimen - Time Time Spent with patient: 25-34 minutes
--- NOTE | 2017-09-02 18:21 | PDOC PROGRESS REPORT ---
Subjective Subjective:: This is 62 years old female patient admitted for acute respiratory failure which requires immediate intubation and mechanical ventilation and also severe hypoglycemia with blood glucose level of 20. Patient still on mechanical ventilation and she is not responding for both verbal and painful stimuli. MRI of the brain could be done because of mechanical ventilation. Reason For Visit: ACUTE RESPIRATORY FAIURE HYPOGLYCEMIA Physical Exam Vital Signs: Temp Pulse Resp BP Pulse Ox 99.1 F 99 16 149/64 H 99 09/02/17 18:07 09/02/17 08:35 09/02/17 18:07 09/02/17 18:07 09/02/17 18:07 Intake & Output 09/01/17 09/02/17 09/03/17 06:59 06:59 06:59 Intake Total 2991 2574 Output Total 3855 3245 1030 Balance -059 -255 -1030 Weight 96.3 kg 96.8 kg 96.8 kg Results Laboratory Results: 09/02/17 05:56 09/02/17 05:56 09/02/17 09/02/17 09/02/17 05:56 05:56 05:56 WBC 9.9 RBC 4.27 Hgb 13.1 Hct 38.9 MCV 91 MCH 30.6 MCHC 33.5 RDW 13.9 Plt Count 220 Seg Neutrophils % 69.7 Lymphocytes % 13.7 Monocytes % 9.9 Eosinophils % 5.8 Basophils % 0.9 Absolute Neutrophils 6.9 Absolute Lymphocytes 1.3 Absolute Monocytes 1.0 Absolute Eosinophils 0.6 Absolute Basophils 0.1 Carbonic Acid 1.13 HCO3/H2CO3 Ratio 24:1 ABG pH 7.49 H ABG pCO2 37.4 ABG pO2 75.0 L ABG HCO3 28.0 H ABG O2 Saturation 96.1 ABG Base Excess 4.6 FiO2 40% Sodium 140.5 Potassium 3.4 L Chloride 102 Carbon Dioxide 30 Anion Gap 9 BUN 11 Creatinine 0.67 Est GFR ( Amer) > 60 Est GFR (Non-Af Amer) > 60 Glucose 233 H Calcium 9.0 Magnesium 1.8 08/31/17 15:00 Tracheal Aspirate Gram Stain - Final 08/31/17 15:00 Tracheal Aspirate Sputum Culture - Final NORMAL ERIKA 08/31/17 09/02/17 05:05 06:02 NT-Pro-B Natriuret Pep 304 306 Impressions: KUB X-Ray 08/28/17 00:00 IMPRESSION: NG tube tip overlies the antral region of the stomach. No free air identified. Head CTA 08/28/17 15:37 IMPRESSION: NO CTA EVIDENCE OF STENOSIS OR ANEURYSM OF THE [place]. Chest/Abdomen CTA 08/29/17 00:00 IMPRESSION: Multiple subcentimeter pulmonary nodules bilaterally Bandlike dense consolidation atelectasis versus pneumonia in the medial left upper lobe, left posterior costophrenic sulcus and medial right lung base. No CT angio evidence of thoracic aortic dissection or acute pulmonary emboli. Chest X-Ray 09/02/17 06:00 IMPRESSION: Small multifocal patchiness with some improvement. Assessment & Plan - Diagnosis (1) Acute respiratory failure with hypercapnia Is this a current diagnosis for this admission?: Yes Plan: Patient continues to be on mechanical ventilation. She is not ready for extubation. (2) Altered mental status Qualifiers: Altered mental status type: coma Qualified Code(s): R41.82 - Altered mental status, unspecified Is this a current diagnosis for this admission?: Yes Plan: Most probably secondary to severe hypoglycemia (3) Hyperkalemia Is this a current diagnosis for this admission?: Yes Plan: Resolved (4) Hypoglycemia Is this a current diagnosis for this admission?: Yes Plan: Resolved (5) Diabetes Qualifiers: Diabetes mellitus type: type 1 Is this a current diagnosis for this admission?: Yes Plan: Continue sliding scale (6) Hypertension Qualifiers: Hypertension type: essential hypertension Qualified Code(s): I10 - Essential (primary) hypertension Is this a current diagnosis for this admission?: Yes Plan: Stable continue home medication. - Time Time Spent with patient: 35 or more minutes
[2017-09-02] MEDS: SIMVASTATIN 40 MG TABLET NG SCH (21:26)
[2017-09-02] MEDS: LATANOPROST 0.005% OPH SOLN 2.5 ML OU SCH (21:26)
[2017-09-02] MEDS: LEVOFLOXACIN 500 MG/D5W RTU 500 MG/100 ML RTUPB IV SCH (21:27)
[2017-09-03] MEDS: PROPOFOL 100 ML IV PRN ×3 (03:42→11:07)
[2017-09-03] MEDS: RINGERS SOLUTION,LACTATED 1,000 ML IV PRN (05:34)
[2017-09-03] MEDS: HYDROCODONE/ACETAMINOPHEN 7.5-325 MG TABLET NG SCH (05:36)
[2017-09-03] MEDS: MEROPENEM 1 GM in NORMAL SALINE 50 ML IV SCH (05:36)
[2017-09-03] MEDS: INSULIN REG, HUMAN 100 UNIT/ML 3 ML VIAL (PYX) SUBCUT PRN (05:39)
[2017-09-03 05:59] LABS: ABSOLUTE BASOPHILS # (AUTO) 0.1 10^3/uL (0.0-0.2); ABSOLUTE EOSINOPHILS # (AUTO) 0.5 10^3/uL (0.0-0.6); ABSOLUTE LYMPHOCYTES (AUTO) 1.1 10^3/uL (0.5-4.7); ABSOLUTE NEUT (AUTO) 7.2 10^3/uL (1.7-8.2); BASOPHILS % (AUTO) 0.8 % (0-2); EOSINOPHILS % (AUTO) 4.7 % (0-6); HEMATOCRIT 37.5 % (36.0-47.0); HEMOGLOBIN 12.8 g/dL (12.0-15.5); LYMPHOCYTES % (AUTO) 11.3 % (13-45); MEAN CORPUSCULAR HEMOGLOBIN 31.2 pg (27.0-33.4); MEAN CORPUSCULAR HGB CONC 34.2 g/dL (32.0-36.0); MEAN CORPUSCULAR VOLUME 91 fl (80-97); MONOCYTES % (AUTO) 10.5 % (3-13); PLATELET COUNT 211 10^3/uL (150-450); RED BLOOD COUNT 4.11 10^6/uL (3.72-5.28); RED CELL DISTRIBUTION WIDTH 13.9 % (11.5-14.0); SEGMENTED NEUTROPHILS % (AUTO) 72.7 % (42-78); TOTAL CELLS COUNTED % (AUTO) 100 %; WHITE BLOOD COUNT 9.9 10^3/uL (4.0-10.5)
[2017-09-03] MEDS ORDERED: PANTOPRAZOLE SODIUM 40 MG VIAL IV SCH (06:00)
[2017-09-03 06:03] LABS: ARTERIAL BLOOD BASE EXCESS 1.8 mmol/L; ARTERIAL BLOOD H2CO3 1.02 mmol/L (1.05-1.35); ARTERIAL BLOOD HCO3 24.7 mmol/L (20-26); ARTERIAL BLOOD O2 SATURATION 97.1 % (94-98); ARTERIAL BLOOD PCO2 33.9 mmHg (35-45); ARTERIAL BLOOD PH 7.48 (7.35-7.45); ARTERIAL BLOOD TOTAL CO2 25.8 mmol/L (21-25)
[2017-09-03 06:04] LABS: ARTERIAL BLOOD FIO2 40%
[2017-09-03 06:12] LABS: ANION GAP 10 (5-19); BLOOD UREA NITROGEN 12 mg/dL (7-20); CALCIUM 8.2 mg/dL (8.4-10.2); CARBON DIOXIDE 28 mmol/L (22-30); CHLORIDE 102 mmol/L (98-107); GLUCOSE 211 mg/dL (75-110); POTASSIUM 3.4 mmol/L (3.6-5.0); SODIUM 140.4 mmol/L (137-145)
--- NOTE | 2017-09-03 06:25 | RADIOLOGY REPORT (SQ) ---
EXAM DESCRIPTION: XR CHEST 1 VIEW CLINICAL HISTORY: 62 years Female, resp failure COMPARISON: One day prior. NUMBER OF VIEWS/TECHNIQUE: 1/AP FINDINGS: Mild interstitial markings, small nodular patchiness of the right mid and lower lung field, normal cardiac silhouette, tip of an endotracheal tube is 5.1 cm from the maulik, adequate appearing an enteric tube obscured at its tip, right subclavian central line tip at the SVC. No pneumothorax. No acute bone defect. IMPRESSION: No significant change.
[2017-09-03] MEDS: POTASSIUM CHLORIDE 20 MEQ/50 ML RTU IV SCH ×2 (06:39→08:35)
[2017-09-03] MEDS ORDERED: POTASSI CL 20 MEQ/50 ML RIDER 20 MEQ/50 ML RTUPB IV ONE (06:41)
--- NOTE | 2017-09-03 08:34 | EEG PRO FEE REPORT ---
EEG INTERPRETATION PAT[id number] ROOM#: 601 ORDER#: [id number] DATE OF STUDY: 09/02/2017 : 1955 REFERRING MD: TOYIN WOOD M.D. MEDICATIONS Tylenol, [place], Mucomyst, Duoneb, Norvasc, Dextrose, Lovenox, Insulin, Dorzolamide, Atenolol, Zofran, Xalatan, Lopressor, Diprivan, Protonix. History This is a 62 year old woman with a history of chronic renal failure, who was found down at home, and is currently on ventilation. This EEG was requested for altered mental status. No breathing effort on the ventilator was noted by the instructional design technologist. EEG Interpretation This EEG was recorded with eyes open, ventilated, in the ICU. The EEG is characterized by a fairly disorganized background without a definitive posterior dominant rhythm. The remainder of the background is characterized by a combination of predominantly theta with some delta and alpha frequencies. The EEG is not reactive to passive eye opening and closing. Photic stimulation resulted in no significant changes. There was an episode of left arm flexion without EEG correlation. There are runs of beta in the right temporal region without evolution or field, more consistent with artifact (the right side of the patient head was not visible on camera). There was no definite epileptiform activity. EEG Classification 1. Generalized background slowing (predominantly theta) 2. Disorganization 3. Unreactivity to passive eye opening and closing 4. Right temporal beta most consistent with artifact without visibility on camera. EEG Impression This is an abnormal EEG. It is characterized by generalized background slowing, disorganization, and unreactivity to passive eye opening and closing consistent with diffuse encephalopathy. No definite electrographic seizure pattern or epileptiform activity are present. There are periods of right temporal beta activity that are poorly delineated, more consistent with artifact. If clinically indicated, further EEGs with longer recording may be beneficial. INTERPRETING PHYSICIAN: YAIR JACKSON M.D. /: [place] TT: [id number] ID: [id number] /: [id number] TD: [id number] JOB: [id number] cc:Ceci HERRERA M.D. ALBERT CURSEEN, M.D. > CHANEL
[2017-09-03] MEDS: METOPROLOL TARTRATE 25 MG TABLET NG SCH (08:38)
[2017-09-03] MEDS: ACETYLCYSTEINE 20% SOLN 800 MG/4 ML VIAL.NEB NEB SCH (08:51)
[2017-09-03] MEDS: IPRATROPIUM/ALBUTEROL 0.5-2.5 MG/3 ML AMPUL NEB PRN (08:51)
[2017-09-03] MEDS: NICOTINE 14 MG/24 HR PATCH.TD24 TD SCH (09:02)
[2017-09-03] MEDS: VALSARTAN 160 MG TABLET NG SCH (09:02)
[2017-09-03] MEDS: AMLODIPINE BESYLATE 10 MG TABLET NG SCH (09:02)
[2017-09-03] MEDS: DORZOLAMIDE HCL 2%/TIMOLOL MALEAT 0.5% OPH SOLN 10 ML OU SCH (09:03)
[2017-09-03] MEDS: SENNOSIDES/DOCUSATE 8.6-50 MG 1 EACH TABLET NG SCH (09:03)
[2017-09-03] MEDS: ENOXAPARIN SODIUM INJ 40 MG/0.4 ML DISP.SYRIN SUBCUT SCH (09:03)
[2017-09-03] MEDS: INSULIN GLARGINE,HUM.REC.ANLOG 300 UNIT/3 ML INSULN.PEN SUBCUT SCH (09:06)
--- NOTE | 2017-09-03 09:33 | PDOC TRANSFER SUMMARY ---
General Admission Date/PCP: 08/28/17 18:08 Transfer Date: 09/03/17 Accepting Facility: [facility] Resuscitation Status: Full Code - Transfer Diagnosis (1) Acute respiratory failure with hypercapnia Is this a current diagnosis for this admission?: Yes (2) Altered mental status Is this a current diagnosis for this admission?: Yes (3) Hyperkalemia Is this a current diagnosis for this admission?: Yes (4) Hypoglycemia Is this a current diagnosis for this admission?: Yes (5) Diabetes Is this a current diagnosis for this admission?: Yes (6) Hypertension Is this a current diagnosis for this admission?: Yes - Transfer Medications Home Medications: Amlodipine Besylate [Norvasc 10 mg Tablet] 10 mg PO DAILY 07/29/11 Cetirizine HCl [Zyrtec 10 mg Tablet] 10 mg PO DAILY 07/29/11 Hum Insulin NPH/Reg Insulin Hm [Humulin 70-30 Pen] 55 unit SQ QAM 07/29/11 Polyethylene Glycol 3350 [Miralax Powder 17 gm/Packet] 17 gm PO DAILY 07/29/11 Gabapentin [Neurontin 300 mg Capsule] 300 mg PO TID 03/10/12 Aripiprazole [Abilify 5 mg Tablet] 5 mg PO DAILY 08/29/17 Atorvastatin Calcium [Lipitor 10 mg Tablet] 10 mg PO QHS 08/29/17 Brimonidine Tartrate/Timolol [Combigan 0.2%-0.5% Eye Drops] 5 ml OU BID Clonazepam [Klonopin] 0.5 mg PO TID 08/29/17 Clonidine HCl [Catapres 0.1 mg Tablet] 0.1 mg PO QIDP PRN 08/29/17 Cyclosporine [Restasis] 1 drop OU BID 08/29/17 Duloxetine HCl [Cymbalta] 120 mg PO DAILY 08/29/17 Hydrocodone Bit/Acetaminophen [Hydrocodon-Acetaminophn 10-325] 1 each PO Q4HP PRN 08/29/17 Insulin NPH Hum/Reg Insulin Hm [Humulin 70/30 Kwikpen] 52 unit SQ QHS 08/29/17 Levothyroxine Sodium [Synthroid 0.05 mg Tablet] 50 mcg PO DAILY 08/29/17 Metoprolol Succinate [Toprol Xl 25 mg Tab.sr] 75 mg PO QHS 08/29/17 Valsartan/Hydrochlorothiazide [Diovan Hct 320-25 mg Tablet] 1 tab PO DAILY 08/29 Zolpidem Tartrate [Ambien] 10 mg PO QHS 08/29/17 Transfer Medications: Current Medications Acetaminophen (Tylenol 325 Mg Tablet) 650 mg NG Q4HP PRN PRN Reason: Fever >100.5 Stop: 09/28/17 11:50 Hydrocodone Bitart/Acetaminophen ([place] 7.5-325 Mg Tablet) 1 tab NG Q6 EVELINA Stop: 09/05/17 11:59 Last Admin: 09/03/17 05:36 Dose: 1 tab Acetylcysteine (Mucomist 20% Soln 800 Mg/4 Ml) 600 mg NEB RTBID EVELINA Stop: 09/30/17 19:59 Last Admin: 09/03/17 08:51 Dose: 600 mg Albuterol/Ipratropium (Duoneb 3 Ml Ampul) 3 ml NEB RTQ4HP PRN PRN Reason: SHORTNESS OF BREATH Stop: 09/27/17 18:20 Last Admin: 09/03/17 08:51 Dose: 3 ml Amlodipine Besylate (Norvasc 10 Mg Tablet) 10 mg NG DAILY EVELINA Stop: 09/29/17 09:59 Last Admin: 09/03/17 09:02 Dose: 10 mg Dextrose (Dextrose Inj 50% Syringe (25 Gm/50 Ml)) 12.5 gm IV PRN PRN; Protocol PRN Reason: FOR BG 50-69 IN ALERT PATIENT Stop: 09/27/17 18:20 Dextrose (Dextrose Inj 50% Syringe (25 Gm/50 Ml)) 25 gm IV PRN PRN; Protocol PRN Reason: See Label Comments Stop: 09/27/17 18:20 Dorzolamide/Timolol (Cosopt Oph Soln 10 Ml) 1 drop OU Q12 EVELINA Stop: 09/28/17 21:59 Last Admin: 09/03/17 09:03 Dose: 1 drop Enoxaparin Sodium (Lovenox Inj 40 Mg/0.4 Ml Disp.Syrin) 40 mg SUBCUT DAILY EVELINA Stop: 09/28/17 09:59 Last Admin: 09/03/17 09:03 Dose: 40 mg Glucagon (Glucagen Inj 1 Mg Vial) 1 mg SUBCUT PRN PRN; Protocol PRN Reason: Evaluate for BG < 70 Stop: 09/27/17 18:20 Glucose (Glutose 40% Gel 15 Gm Tube) 15 gm PO PRN PRN; Protocol PRN Reason: For BG 50-69 in Alert Patient Stop: 09/27/17 18:20 Glucose (Glutose 40% Gel 15 Gm Tube) 30 gm PO PRN PRN; Protocol PRN Reason: FOR BG < 50 IN ALERT PATIENT Stop: 09/27/17 18:20 Hydralazine HCl (Apresoline Inj/Pf 20 Mg/1 Ml Sdv) 10 mg IV Q4HP PRN PRN Reason: SBP 180 AND ABOVE Stop: 09/28/17 18:36 Last Admin: 08/30/17 06:28 Dose: 10 mg Lactated Ringer's (Lactated Ringers 1000 Ml Iv Soln) 1,000 mls @ 100 mls/hr IV CONTINUOUS PRN PRN Reason: THIS MED IS NOT "PRN" Stop: 09/27/17 18:20 Last Admin: 09/03/17 05:34 Dose: 1,000 ml Propofol (Diprivan Rtu 1000 Mg/100 Ml Inf.Bottle) 100 mls @ 0 mls/hr IV CONTINUOUS PRN; Protocol; Titrate PRN Reason: THIS MED IS NOT "PRN" Stop: 09/27/17 18:20 Last Admin: 09/03/17 08:27 Dose: 100 ml Levofloxacin/Dextrose (Levaquin Rtu 500mg/D5w 100 Ml Premix) 500 mg in 100 mls @ 100 mls/hr IV QHS [facility] Stop: 09/04/17 21:59 Last Admin: 09/02/17 21:27 Dose: 100 ml Meropenem 1 gm/ Sodium (Chloride) 50 mls @ 100 mls/hr IV Q8 [facility] Stop: 09/06/17 21:59 Last Admin: 09/03/17 05:36 Dose: 1 gm Midazolam HCl (Versed Rtu 50 Mg/100 Ml Premix Bag) 50 mg in 100 mls @ 0 mls/hr IV-INFUSE CONTINUOUS PRN; Protocol; Titrate PRN Reason: THIS MED IS NOT "PRN" Stop: 09/07/17 09:51 Potassium Chloride/Water (Potassium Chloride Sha 20 Meq/50 Ml) 20 meq in 50 mls @ 25 mls/hr IV Q2H [facility] Stop: 09/03/17 10:44 Last Admin: 09/03/17 08:35 Dose: 50 ml Insulin Glargine (Lantus Insulin Inj 300 Unit/3 Ml Pen) 10 unit SUBCUT Q12 EVELINA Stop: 09/30/17 21:59 Last Admin: 09/03/17 09:06 Dose: 10 unit Insulin Human Regular (Humulin R (Pyxis) Insulin 100 Unit/Ml 3ml) 0 - 12 unit SUBCUT Q6HP PRN; Protocol PRN Reason: PER PROTOCOL Stop: 09/28/17 16:20 Last Admin: 09/03/17 05:39 Dose: 4 unit Lactulose (Cephulac Syrup 20 Gm/30 Ml Udcup) 20 gm NG DAILYP PRN PRN Reason: UNRESOLVED CONSTIPATION Stop: 10/01/17 11:59 Latanoprost (Xalatan 0.005% Oph Soln 2.5 Ml) 1 drop OU QHS EVELINA Stop: 09/28/17 21:59 Last Admin: 09/02/17 21:26 Dose: 1 drop Metoprolol Tartrate (Lopressor 25 Mg Tablet) 37.5 mg NG Q12 EVELINA Stop: 09/28/17 21:59 Last Admin: 09/03/17 08:38 Dose: 37.5 mg Nicotine (Nicoderm 14 Mg/24 Hr Transdermal Patch) 1 each TD DAILY EVELINA Stop: 09/29/17 09:59 Last Admin: 09/03/17 09:02 Dose: 1 each Ondansetron HCl (Zofran Inj/Pf 4 Mg/2 Ml Sdv) 4 mg IV Q4HP PRN PRN Reason: FOR NAUSEA/VOMITING Stop: 09/27/17 18:20 Pantoprazole Sodium (Protonix Iv Inj 40 Mg Vial) 40 mg IV Q6AM EVELINA Stop: 09/06/17 05:59 Last Admin: 09/03/17 05:35 Dose: 40 mg Senna/Docusate Sodium (Senna Plus Tablet) 1 each NG BID EVELINA Stop: 10/01/17 17:59 Last Admin: 09/03/17 09:03 Dose: 1 each Simvastatin (Zocor 40 Mg Tablet) 40 mg NG QHS EVELINA Stop: 09/28/17 21:59 Last Admin: 09/02/17 21:26 Dose: 40 mg Sodium Chloride (Saline Flush 2.5 Ml Monoject Prefil Syrin) 2.5 ml IV Q8 EVELINA Stop: 09/27/17 21:59 Last Admin: 09/03/17 05:34 Dose: 2.5 ml Valsartan (Diovan 160 Mg Tablet) 160 mg NG DAILY EVELINA Stop: 10/02/17 09:59 Last Admin: 09/03/17 09:02 Dose: 160 mg - Allergies Allergies/Adverse Reactions: amoxicillin [Amoxicillin] Allergy (Unknown, Verified 04/05/16 14:43) erythromycin base [Erythromycin Base] Allergy (Unknown, Verified 04/05/16 14:43) tetracycline [Tetracycline] Allergy (Unknown, Verified 04/05/16 14:43) - Diet/Activity Discharge Diet: Other (Comments) - N.p.o. Hospital Course Hospital Course: This patient presents to the emergency room after being found unresponsive by her family. She was last seen yesterday evening and was found to be unresponsive and hypoglycemic with a blood sugar of 20. She was also found to be very hyperkalemic with a potassium of 6 and acidotic with a pH of 7.2 and PCO2 of 70. Patient emergently intubated and transferred to medical intensive care unit. Her hypoglycemia and hyperkalemia has been corrected. Her vital signs are stable and she does not need pressor. CT of the head is negative for acute intracranial process MRI of the brain could not be done. Patient transferred to [facility] for further evaluation and management by neurologist. Physical Exam Vital Signs: Temp Pulse Resp BP Pulse Ox 98.2 F 97 18 169/72 H 97 09/03/17 08:38 09/03/17 08:51 09/03/17 08:51 09/03/17 08:38 09/03/17 08:51 Intake & Output 09/02/17 09/03/17 09/04/17 06:59 06:59 06:59 Intake Total 5410 8549 Output Total 9181 8866 650 Balance -671 -2291 -650 Weight 96.8 kg 97 kg General appearance: PRESENT: no acute distress Head exam: PRESENT: atraumatic, normocephalic Eye exam: PRESENT: other - Right pupil relatively dilated Respiratory exam: PRESENT: clear to auscultation daphnie. ABSENT: rales, rhonchi, wheezes Cardiovascular exam: PRESENT: RRR. ABSENT: diastolic murmur, rubs, systolic murmur Neurological exam: PRESENT: other - Patient intubated and on mechanical ventilation. She barely responds to noxious stimuli Results Laboratory Results: 09/03/17 05:48 09/03/17 05:48 09/03/17 09/03/17 09/03/17 05:48 05:48 05:48 WBC 9.9 RBC 4.11 Hgb 12.8 Hct 37.5 MCV 91 MCH 31.2 MCHC 34.2 RDW 13.9 Plt Count 211 Seg Neutrophils % 72.7 Lymphocytes % 11.3 L Monocytes % 10.5 Eosinophils % 4.7 Basophils % 0.8 Absolute Neutrophils 7.2 Absolute Lymphocytes 1.1 Absolute Monocytes 1.0 Absolute Eosinophils 0.5 Absolute Basophils 0.1 Carbonic Acid 1.02 L HCO3/H2CO3 Ratio 24:1 ABG pH 7.48 H ABG pCO2 33.9 L ABG pO2 85.0 ABG HCO3 24.7 ABG O2 Saturation 97.1 ABG Base Excess 1.8 FiO2 40% Sodium 140.4 Potassium 3.4 L Chloride 102 Carbon Dioxide 28 Anion Gap 10 BUN 12 Creatinine 0.55 Est GFR ( Amer) > 60 Est GFR (Non-Af Amer) > 60 Glucose 211 H Calcium 8.2 L Magnesium 1.7 08/31/17 15:00 Tracheal Aspirate Gram Stain - Final 08/31/17 15:00 Tracheal Aspirate Sputum Culture - Final NORMAL ERIKA 08/31/17 09/02/17 09/03/17 05:05 06:02 05:48 NT-Pro-B Natriuret Pep 304 306 338 Impressions: KUB X-Ray 08/28/17 00:00 IMPRESSION: NG tube tip overlies the antral region of the stomach. No free air identified. Head CTA 08/28/17 15:37 IMPRESSION: NO CTA EVIDENCE OF STENOSIS OR ANEURYSM OF [place]. Chest/Abdomen CTA 08/29/17 00:00 IMPRESSION: Multiple subcentimeter pulmonary nodules bilaterally Bandlike dense consolidation atelectasis versus pneumonia in the medial left upper lobe, left posterior costophrenic sulcus and medial right lung base. No CT angio evidence of thoracic aortic dissection or acute pulmonary emboli. Chest X-Ray 09/03/17 06:00 IMPRESSION: No significant change.
--- NOTE | 2017-09-03 09:38 | PDOC PROGRESS REPORT ---
Subjective Progress Note for:: 09/03/17 Subjective:: Unchanged, remains intubated and sedated Reason For Visit: ACUTE RESPIRATORY FAIURE HYPOGLYCEMIA Physical Exam Vital Signs: Temp Pulse Resp BP Pulse Ox 98.1 F 111 H 17 140/69 H 98 09/03/17 06:00 09/02/17 20:06 09/03/17 06:00 09/03/17 05:37 09/03/17 06:00 Intake & Output 09/02/17 09/03/17 09/04/17 06:59 06:59 06:59 Intake Total 2574 2429 Output Total 3241 7110 Balance -671 -1201 Weight 96.8 kg 97 kg General appearance: PRESENT: no acute distress, disheveled, obese. ABSENT: cooperative Head exam: PRESENT: atraumatic, normocephalic Eye exam: PRESENT: conjunctiva pale. ABSENT: EOMI, nystagmus, periorbital swelling, PERRLA - 5mm-L 3 mm-R, scleral icterus Mouth exam: PRESENT: dry mucosa, neck supple, tongue midline, other - ET tube Neck exam: ABSENT: carotid bruit, JVD, lymphadenopathy, thyromegaly, tracheal deviation, tracheostomy Respiratory exam: PRESENT: decreased breath sounds, prolonged expiratory phas, rales, rhonchi, unlabored. ABSENT: retraction, stridor, tachypnea Cardiovascular exam: PRESENT: RRR, +S1, +S2, tachycardia Pulses: PRESENT: normal radial pulses GI/Abdominal exam: PRESENT: hypoactive bowel sounds, soft Extremities exam: ABSENT: calf tenderness, clubbing, joint swelling Musculoskeletal exam: ABSENT: ambulatory, deformity, dislocation Neurological exam: ABSENT: alert, oriented to person, oriented to place, oriented to time, oriented to situation Skin exam: PRESENT: dry, warm Results Laboratory Results: 09/03/17 05:48 09/03/17 05:48 09/03/17 09/03/17 09/03/17 05:48 05:48 05:48 WBC 9.9 RBC 4.11 Hgb 12.8 Hct 37.5 MCV 91 MCH 31.2 MCHC 34.2 RDW 13.9 Plt Count 211 Seg Neutrophils % 72.7 Lymphocytes % 11.3 L Monocytes % 10.5 Eosinophils % 4.7 Basophils % 0.8 Absolute Neutrophils 7.2 Absolute Lymphocytes 1.1 Absolute Monocytes 1.0 Absolute Eosinophils 0.5 Absolute Basophils 0.1 Carbonic Acid 1.02 L HCO3/H2CO3 Ratio 24:1 ABG pH 7.48 H ABG pCO2 33.9 L ABG pO2 85.0 ABG HCO3 24.7 ABG O2 Saturation 97.1 ABG Base Excess 1.8 FiO2 40% Sodium 140.4 Potassium 3.4 L Chloride 102 Carbon Dioxide 28 Anion Gap 10 BUN 12 Creatinine 0.55 Est GFR ( Amer) > 60 Est GFR (Non-Af Amer) > 60 Glucose 211 H Calcium 8.2 L Magnesium 1.7 08/31/17 15:00 Tracheal Aspirate Gram Stain - Final 08/31/17 15:00 Tracheal Aspirate Sputum Culture - Final NORMAL ERIKA 08/31/17 09/02/17 09/03/17 05:05 06:02 05:48 NT-Pro-B Natriuret Pep 304 306 338 Impressions: KUB X-Ray 08/28/17 00:00 IMPRESSION: NG tube tip overlies the antral region of the stomach. No free air identified. Head CTA 08/28/17 15:37 IMPRESSION: NO CTA EVIDENCE OF STENOSIS OR ANEURYSM OF THE [place]. Chest/Abdomen CTA 08/29/17 00:00 IMPRESSION: Multiple subcentimeter pulmonary nodules bilaterally Bandlike dense consolidation atelectasis versus pneumonia in the medial left upper lobe, left posterior costophrenic sulcus and medial right lung base. No CT angio evidence of thoracic aortic dissection or acute pulmonary emboli. Chest X-Ray 09/03/17 06:00 IMPRESSION: No significant change. Assessment & Plan - Diagnosis (1) Lung mass Is this a current diagnosis for this admission?: Yes Plan: L hilar enlargement CT (2) Acute respiratory failure with hypercapnia Is this a current diagnosis for this admission?: Yes Plan: No improvement in mental status, remains unresponsive (3) Diabetes Qualifiers: Diabetes mellitus type: type 1 Is this a current diagnosis for this admission?: Yes Plan: per pcp (4) Glaucoma Is this a current diagnosis for this admission?: Yes Plan: continue home meds (5) Hypertension Qualifiers: Hypertension type: essential hypertension Qualified Code(s): I10 - Essential (primary) hypertension Is this a current diagnosis for this admission?: Yes (6) Chronic, continuous use of opioids Is this a current diagnosis for this admission?: Yes Plan: resume alexsandra - Plan Summary Plan Summary: needs MRI and neurology
[2017-09-03 11:43] VITALS: BP 157/64
== END 2017-09-03 11:00 | disposition short-term general hospital (02) | DRG 207 ==
LOC: ER 15:25 → EH 18:08 → ICU 19:26
PROVIDERS: ADMIT Internal Medicine; ATTEND Internal Medicine
PROC: 5A1955Z Respiratory Ventilation, Greater than 96 Consecutive Hours (ICD-10-PCS; principal; 2017-08-28)
PROC: 0BH17EZ Insertion of Endotracheal Airway into Trachea, Via Natural or Artificial Opening (ICD-10-PCS; 2017-08-28)
PROC: 02HV33Z Insertion of Infusion Device into Superior Vena Cava, Percutaneous Approach (ICD-10-PCS; 2017-08-29)
DX: J96.02 Acute respiratory failure with hypercapnia (principal); E11.641 Type 2 diabetes mellitus with hypoglycemia with coma; J18.9 Pneumonia, unspecified organism; E87.2 Acidosis; N39.0 Urinary tract infection, site not specified; N18.3 Chronic kidney disease, stage 3 (moderate); I12.9 Hypertensive chronic kidney disease with stage 1 through stage 4 chronic kidney disease, or unspecified chronic kidney disease; E11.22 Type 2 diabetes mellitus with diabetic chronic kidney disease; E87.5 Hyperkalemia; J44.9 Chronic obstructive pulmonary disease, unspecified; R91.8 Other nonspecific abnormal finding of lung field; E78.00 Pure hypercholesterolemia, unspecified; B95.2 Enterococcus as the cause of diseases classified elsewhere; F41.8 Other specified anxiety disorders; R41.82 Altered mental status, unspecified; E66.01 Morbid (severe) obesity due to excess calories; H40.9 Unspecified glaucoma; Z60.2 Problems related to living alone; Z79.82 Long term (current) use of aspirin; Z79.4 Long term (current) use of insulin; Z79.899 Other long term (current) drug therapy; Z79.891 Long term (current) use of opiate analgesic
CPT/HCPCS: 36415; 51702; 70496; 71045; 71275; 74018; 80048; 80053; 80307; 81001; 82803; 82962; 83036; 83605; 83735; 83880; 84100; 84443; 84478; 85025; 85610; 87040; 87070; 87086; 87088; 87186; 87205; 93005; 93010; 94002; 94003; 94640; 95819; 96361; 96374; 96375; 99291; C1751; J0330; J0360; J0610; J1650; J1815; J1956; J2185; J2250; J2704; J3475; J3480; J3490; J7030; J7120; J7620; S0164

== ENCOUNTER 2017-10-29 13:03 | Emergency (ER) | payer MEDICAID ==
[2017-10-29 13:31] LABS: HEMATOCRIT 32.8 % (36.0-47.0); HEMOGLOBIN 10.7 g/dL (12.0-15.5); MEAN CORPUSCULAR HEMOGLOBIN 31.6 pg (27.0-33.4); MEAN CORPUSCULAR HGB CONC 32.5 g/dL (32.0-36.0); MEAN CORPUSCULAR VOLUME 97 fl (80-97); PLATELET COUNT 326 10^3/uL (150-450); RED BLOOD COUNT 3.37 10^6/uL (3.72-5.28); WHITE BLOOD COUNT 14.7 10^3/uL (4.0-10.5)
[2017-10-29 13:39] LABS: INTERNATIONAL RATION (INR) 1.07; PROTHROMBIN TIME 14.5 SEC (11.4-15.4)
[2017-10-29 13:40] LABS: PARTIAL THROMBOPLASTIN TIME 31.7 SEC (23.5-35.8)
[2017-10-29 13:50] LABS: ALANINE AMINOTRANSFERASE 37 U/L (9-52); ALBUMIN 2.9 g/dL (3.5-5.0); ALCOHOL < 10 mg/dL (NONE DETECTED); ALKALINE PHOSPHATASE 99 U/L (38-126); ANION GAP 12 (5-19); ASPARTATE AMINO TRANSFERASE 55 U/L (14-36); BILIRUBIN,DIRECT 0.3 mg/dL (0.0-0.4); BILIRUBIN,TOTAL 0.4 mg/dL (0.2-1.3); BLOOD UREA NITROGEN 13 mg/dL (7-20); CALCIUM 8.3 mg/dL (8.4-10.2); CARBON DIOXIDE 25 mmol/L (22-30); CHLORIDE 101 mmol/L (98-107); CREATINE KINASE 115 U/L (30-135); GLUCOSE 324 mg/dL (75-110); SODIUM 138.4 mmol/L (137-145)
--- NOTE | 2017-10-29 13:50 | RADIOLOGY REPORT (SQ) ---
EXAM DESCRIPTION: CT HEAD WITHOUT COMPLETED DATE/TIME: 10/29/2017 1:26 pm REASON FOR STUDY: possible seizure, post-arrest, unequal pupils COMPARISON: CT brain 04/05/2016 CT angio brain 08/28/2017 TECHNIQUE: Axial images acquired through the brain without intravenous contrast. Images reviewed wi th bone, brain and subdural windows. Additional sagittal and coronal reconstructions were generated. Images stored on PACS. All CT scanners at this facility use dose modulation, iterative reconstruction, and/or weight based d osing when appropriate to reduce radiation dose to as low as reasonably achievable (ALARA). [facility]: Dose Right [facility]: CareDose [facility]: Dose Right [facility]: Teradose 4D [facility]: NOBOT RADIATION DOSE: CT Rad equipment meets quality standard of care and radiation dose reduction techniq ues were employed. CTDIvol: 53.2 mGy. DLP: 1070 mGy-cm. mGy. LIMITATIONS: Motion artifact throughout the study FINDINGS: Motion artifact throughout the study. On the images without motion artifact, no gross midline shift or acute intracranial hemorrhage. No v entriculomegaly. No gross skull fracture. Paranasal sinuses clear. Endotracheal tube in the oropha rynx IMPRESSION: Motion artifact. No acute intracranial hemorrhage or midline shift. Very limited study EVIDENCE OF ACUTE STROKE: NO. COMMENT: Quality ID # [id number]: Final reports with documentation of one or more dose reduction techniques (e.g., Automated exposure control, adjustment of the mA and/or kV according to patient size, use of iterative reconstruction technique) TECHNICAL DOCUMENTATION: JOB ID: [id number] [email or web address]- All Rights Reserved Reading location - IP/workstation name: [email or web address]
--- NOTE | 2017-10-29 13:52 | RADIOLOGY REPORT (SQ) ---
EXAM DESCRIPTION: CHEST SINGLE VIEW COMPLETED DATE/TIME: 10/29/2017 1:29 pm REASON FOR STUDY: cardiac arrest with rosc COMPARISON: Chest film 09/03/2017, 09/02/2017 CT angio chest 08/30/2017 EXAM PARAMETERS: NUMBER OF VIEWS: One view. TECHNIQUE: Single frontal radiographic view of the chest acquired. RADIATION DOSE: NA LIMITATIONS: None. FINDINGS: LUNGS AND PLEURA: Diffuse bilateral alveolar and interstitial infiltrates right greater th an left worrisome for pulmonary edema. No pleural effusion. No pneumothorax. MEDIASTINUM AND HILAR STRUCTURES: No masses. Contour normal. HEART AND VASCULAR STRUCTURES: No cardiomegaly BONES: No acute findings. HARDWARE: Endotracheal tube tip 1 cm above the maulik. Nasogastric tube tip and side port in the sto mach. OTHER: Defibrillator pads over the chest. IMPRESSION: Asymmetric alveolar and interstitial infiltrates right greater than left worrisome for p ulmonary edema Endotracheal tube tip 1 cm above the maulik. Nasogastric tube tip and side port in the stomach. TECHNICAL DOCUMENTATION: JOB ID: [id number] [employer]- All Rights Reserved Reading location - IP/workstation name: [facility]
[2017-10-29 14:00] LABS: CREATINE KINASE MB 3.8 ng/mL (<4.55)
[2017-10-29 14:02] LABS: TROPONIN I 0.193 ng/mL
[2017-10-29 14:07] LABS: ABSOLUTE LYMPHOCYTES# (MANUAL) 1.3 10^3/uL (0.5-4.7); ABSOLUTE MONOCYTES # (MANUAL) 0.7 10^3/uL (0.1-1.4); ABSOLUTE NEUTROPHILS# (MANUAL) 12.5 10^3/uL (1.7-8.2); ANISOCYTOSIS SLIGHT; BAND NEUTROPHILS % (MANUAL) 5 % (3-5); BASOPHILS % (MANUAL) 0 % (0-2); EOSINOPHILS % (MANUAL) 1 % (0-6); LYMPHOCYTES % (MANUAL) 9 % (13-45); METAMYELOCYTES % (MANUAL) 1 % (0); MONOCYTES % (MANUAL) 5 % (3-13); PLATELET COMMENT ADEQUATE; POLYCHROMASIA 1+; SEGMENTED NEUTROPHILS % (MAN) 79 % (42-78); TOTAL CELLS COUNTED 100; TOXIC GRANULATION 1+; TOXIC VACUOLATION PRESENT
[2017-10-29 14:14] LABS: AMORPHOUS SEDIMENT,URINE TRACE /HPF; APPEARANCE,URINE CLOUDY; BILIRUBIN,URINE NEGATIVE (NEGATIVE); COLOR,URINE YELLOW; GLUCOSE, URINE 50 mg/dL (NEGATIVE); KETONES,URINE NEGATIVE (NEGATIVE); LEUKOCYTE ESTERASE,URINE NEGATIVE (NEGATIVE); NITRITE,URINE NEGATIVE (NEGATIVE); PROTEIN,URINE 100 mg/dL (NEGATIVE); URINE SPECIFIC GRAVITY 1.012; UROBILINOGEN,URINE NEGATIVE mg/dL (<2.0)
[2017-10-29] MEDS ORDERED: FUROSEMIDE INJ/PF 40 MG/4 ML SDV IV ONE (14:14)
[2017-10-29] MEDS: NORMAL SALINE 1000 ML 1,000 ML IV PRN ×2 (14:16→14:21)
[2017-10-29] MEDS: MIDAZOLAM HCL 50 MG/100 ML RTUINJ IV PRN ×2 (14:16→19:28)
[2017-10-29 14:21] LABS: ARTERIAL BLOOD BASE EXCESS -0.7 mmol/L; ARTERIAL BLOOD FIO2 100%; ARTERIAL BLOOD H2CO3 1.81 mmol/L (1.05-1.35); ARTERIAL BLOOD HCO3 27.3 mmol/L (20-26); ARTERIAL BLOOD O2 SATURATION 92.2 % (94-98); ARTERIAL BLOOD PH 7.28 (7.35-7.45); ARTERIAL BLOOD PO2 72.1 mmHg (80-100); ARTERIAL BLOOD TOTAL CO2 29.1 mmol/L (21-25)
[2017-10-29 14:29] LABS: URINE AMPHETAMINES SCREEN NEGATIVE; URINE BARBITURATES SCREEN NEGATIVE; URINE BENZODIAZEPINES SCREEN NEGATIVE; URINE COCAINE SCREEN NEGATIVE; URINE MARIJUANA (THC) SCREEN NEGATIVE; URINE METHADONE SCREEN NEGATIVE; URINE PHENCYCLIDINE SCREEN NEGATIVE
[2017-10-29] MEDS ORDERED: CEFTRIAXONE 1 GM/D5W RTU 1 GM/50 ML RTUPB IV ONE (14:33)
[2017-10-29 14:34] LABS: ANION GAP 11 (5-19); BLOOD UREA NITROGEN 15 mg/dL (7-20); CALCIUM 8.4 mg/dL (8.4-10.2); CARBON DIOXIDE 26 mmol/L (22-30); CHLORIDE 102 mmol/L (98-107); GLUCOSE 328 mg/dL (75-110); SODIUM 139.2 mmol/L (137-145)
[2017-10-29] MEDS ORDERED: CEFTRIAXONE INJ 1000 MG VIAL ONE (14:46)
[2017-10-29 15:10] LABS: POTASSIUM 6.7 mmol/L (3.6-5.0)
[2017-10-29] MEDS ORDERED: ENOXAPARIN SODIUM INJ 120 MG/0.8 ML DISP.SYRIN SUBCUT ONE (15:14)
[2017-10-29] MEDS ORDERED: CEFEPIME 1 GM/D5W RTU 1 GM/50 ML RTUPB IV ONE (15:56)
[2017-10-29] MEDS ORDERED: INSULIN REG, HUMAN 100 UNIT/ML 3 ML VIAL (PYX) SUBCUT ONE (15:56)
[2017-10-29] MEDS ORDERED: DEXTROSE 50%-WATER 25 GM/50 ML DISP.SYRIN IV ONE (15:56)
[2017-10-29] MEDS ORDERED: VANCOMYCIN HCL INJ 1000 MG VIAL IV ONE (15:56)
[2017-10-29] MEDS ORDERED: CALCIUM CHLORIDE 10% PF/INJ 1000 MG/10 ML SDV IV ONE (15:57)
[2017-10-29] MEDS ORDERED: MIDAZOLAM 2 MG/2 ML INJ IV ONE (15:57)
[2017-10-29] MEDS ORDERED: CALCIUM GLUCONATE 1000 MG/10 ML INJ IV ONE (16:12)
[2017-10-29] MEDS ORDERED: DEXTROSE 5%-WATER 1000 ML 1,000 ML with SODIUM BICARBONATE 150 MEQ IV PRN ×2 (16:54)
--- NOTE | 2017-10-29 17:02 | ER Document Report ---
ED General - General Chief Complaint: Respiratory Arrest Stated Complaint: RESPIRATORY DISTRESS Time Seen by Provider: 10/29/17 13:09 Mode of Arrival: Medic Cannot obtain history due to: Intubated Notes: 62-year-old female brought in by EMS for cardiac arrest. EMS was called because of possible seizure activity from the family, when EMS arrived they stated that the patient was only breathing 2-3 times a minute and when they checked for a pulse they could not feel a pulse, they laid the patient down on the floor put her on a monitor and found that her monitor showed sinus bradycardia however they should could not find a pulse of the called it PEA. They then started CPR, after 8 minutes of CPR and 1 dose of epinephrine through an intraosseous line they were able to obtain ROSC, patient had been intubated using a 7 oh ET tube. During transport patient started moving and trying to bite the tube so they gave her 300 mg of ketamine through the IO. Family does not know much of her history, states that she does not share much with them as far as how she is taking her medications but they do know she was just discharged from a rehab facility in [place] 2 days ago, had [facility] for [facility]. TRAVEL OUTSIDE OF THE [place] IN LAST 30 DAYS: No - Related Data Allergies/Adverse Reactions: amoxicillin [Amoxicillin] Allergy (Unknown, Verified 10/29/17 13:42) erythromycin base [Erythromycin Base] Allergy (Unknown, Verified 10/29/17 13:42) tetracycline [Tetracycline] Allergy (Unknown, Verified 10/29/17 13:42) Past Medical History - General Information source: Parent, Emergency Med Personnel, [facility] Records Cannot obtain history due to: Intubated - Social History Smoking Status: Unknown if Ever Smoked Family History: Reviewed & Not Pertinent Patient has suicidal ideation: No Patient has homicidal ideation: No - Past Medical History Cardiac Medical History: Reports: Hx Hypercholesterolemia, Hx Hypertension - hctz amlodipine metropolol Denies: Hx Heart Attack Pulmonary Medical History: Reports: Hx COPD, Hx Pneumonia Denies: Hx Asthma Neurological Medical History: Denies: Hx Cerebrovascular Accident, Hx Seizures Endocrine Medical History: Reports: Hx Diabetes Mellitus Type 2 - IDDM Renal/ Medical History: Denies: Hx Peritoneal Dialysis GI Medical History: Denies: Hx Hepatitis, Hx Hiatal Hernia, Hx Ulcer Musculoskeletal Medical History: Reports Hx Arthritis Psychiatric Medical History: Reports: Hx Anxiety, Hx Depression Infectious Medical History: Denies: Hx Hepatitis Past Surgical History: Reports: Hx Carotid Endarterectomy - Recently at [facility], Hx Oral Surgery - bone spurs and ingrown toenails. Denies: Hx Mastectomy, Hx Open Heart Surgery, Hx Pacemaker - Immunizations Hx Diphtheria, Pertussis, Tetanus Vaccination: Yes Hx Pneumococcal Vaccination: 04/12/15 Review of Systems - Review of Systems -: Yes ROS unobtainable due to patient's medical condition - Intubated and unresponsive. Physical Exam - Vital signs Vitals: Pulse Ox 98 10/29/17 13:05 Interpretation: No: Hypotensive, Tachycardic, Tachypneic - Notes Notes: General: intubated, not responding to painful stimuli when I poke her feet however she is having some spontaneous respirations and gagging on the tube. HEENT pupils unequal, minimally reactive, left pupil 5 mm, right pupil 3 mm no trauma to the eyes. Oral mucosa is moist, 7-0 ET tube in mouth at 27 cm at the teeth, this was withdrawn 2 cm and re-taped. Neck- trachea midline Lungs: Clear to auscultation bilaterally, breathing on her own, drawing a tidal volume of approximately 500 mL. Heart: Regular rate and rhythm, no murmurs, gallops or rubs Abdomen: Soft, nondistended, does not respond to palpation, normal bowel sounds Extremities: IO in the right proximal tibia, IV in the left foot, occasional spontaneous movements but does not withdraw from painful stimuli, dorsalis pedis and posterior tibialis as well as radial pulses 2+ bilaterally Skin: Capillary refill approximately 3 seconds, slightly pale, warm to the touch. Neurologic: GCS of 3 however she is intubated and was sedated with ketamine prior to arrival Course - Re-evaluation Re-evalutation: 10/29/17 17:21 Patient arrived on a ventilator with strong pulses, breathing over the vent. Versed was started for sedation for when the ketamine wore off, patient is ventilating well at this point, chest x-ray confirmed that the ET tube was quite deep, this was withdrawn 2 cm and re-taped, CT scan of the head was ordered because of the unequal pupils, this did not reveal any acute intracranial process, chest x-ray showed possible asymmetric pulmonary edema, CBC showed leukocytosis of 14.7, anemia with a hemoglobin 10.7, platelets normal , coags basically normal INR only slightly prolonged at 1.07, arterial blood gas shows a pH of 7.28, PCO2 of 60, PO2 of 72, bicarb of 27.3, this is mildly hypoxic respiratory acidosis, chemistries showed a potassium of 7.0, I do not know why her chemistries show such a high potassium, she does not have any acute renal failure, this was repeated and found to be real at 6.7, patient was given Lasix, bicarb drip, calcium chloride was requested by the ic designer gate [employer] [facility] however we do not have this so she was given calcium gluconate instead, insulin and glucose as well. Glucose was elevated at 324 here, Actiq acid elevated at 4.3, troponin elevated at 0.1938, this may represent non-STEMI but could also represent simply shock from cardiac arrest. ProBNP elevated at 2440 consistent with chest x-ray as well. Urinalysis unremarkable, urine drug screen shows opiates, alcohol is undetectable. Patient is prescribed narcotics for pain at home. Presentation is not consistent with narcotic overdose. Given the elevated troponin and elevated proBNP with ST segment depressions on the EKG signifying some cardiac stress in the setting of cardiac arrest or near arrest this patient is not felt appropriate to stay at a facility that does not have interventional cardiology. I did discuss the patient with Dr. Noble from [facility] where patient was seen most recently, he accepts the patient has an admission to the medical ICU, requests that the potassium be treated with calcium chloride, insulin, glucose and bicarb drip. Requests for the asymmetric pulmonary edema versus pneumonia that the patient be treated with Vanco and cefepime, they had already been given Rocephin our they are adding cefepie as well. Blood cultures have been started. Patient does not need pressors at this time 10/29/17 20:30 Transport team is at the bedside. Patient is still moderately sedated on Versed. Patient will be transported as soon as they finished their bedside assessment. Patient has just now become somewhat hypotensive however when the pressure was recycled she is no longer hypotensive. I will still not start pressors at this time. 10/29/17 20:32 Patient is stable for transport. - Vital Signs Vital signs: Temp Pulse Resp BP Pulse Ox 19 113/59 L 95 10/29/17 20:01 10/29/17 20:01 10/29/17 20:01 - Laboratory Result Diagrams: 10/29/17 13:10 10/29/17 14:11 Laboratory results interpreted by me: 10/29/17 10/29/17 10/29/17 13:10 13:10 13:10 WBC 14.7 H RBC 3.37 L Hgb 10.7 L Hct 32.8 L RDW 15.0 H Seg Neuts % (Manual) 79 H Lymphocytes % (Manual) 9 L Metamyelocytes % 1 H Abs Neuts (Manual) 12.5 H Carbonic Acid ABG pH ABG pCO2 ABG pO2 ABG HCO3 ABG Total CO2 ABG O2 Saturation Potassium 7.0 H* Est GFR (Non-Af Amer) 50 L Glucose 324 H POC Glucose Lactic Acid 4.3 H Calcium 8.3 L AST 55 H NT-Pro-B Natriuret Pep Total Protein 6.0 L Albumin 2.9 L Urine Protein Urine Glucose (UA) 10/29/17 10/29/17 10/29/17 13:10 13:43 14:11 WBC RBC Hgb Hct RDW Seg Neuts % (Manual) Lymphocytes % (Manual) Metamyelocytes % Abs Neuts (Manual) Carbonic Acid ABG pH ABG pCO2 ABG pO2 ABG HCO3 ABG Total CO2 ABG O2 Saturation Potassium 6.7 H* Est GFR (Non-Af Amer) 54 L Glucose 328 H POC Glucose Lactic Acid Calcium AST NT-Pro-B Natriuret Pep 2440 H Total Protein Albumin Urine Protein 100 H Urine Glucose (UA) 50 H 10/29/17 10/29/17 14:11 19:23 WBC RBC Hgb Hct RDW Seg Neuts % (Manual) Lymphocytes % (Manual) Metamyelocytes % Abs Neuts (Manual) Carbonic Acid 1.81 H ABG pH 7.28 L ABG pCO2 60.0 H ABG pO2 72.1 L ABG HCO3 27.3 H ABG Total CO2 29.1 H ABG O2 Saturation 92.2 L Potassium Est GFR (Non-Af Amer) Glucose POC Glucose 474 H* Lactic Acid Calcium AST NT-Pro-B Natriuret Pep Total Protein Albumin Urine Protein Urine Glucose (UA) - EKG Interpretation by Me Additional EKG results interpreted by me: 10/29/17 17:23 EKG shows sinus rhythm at a rate of 67, there is slight ST segment depression in lead II, slightly more in lead III and aVF, also ST segment depressions in V3 through V6, no elevations and only slight T-wave inversions in leads I and aVL per my interpretation. Critical Care Note - Critical Care Note Total time excluding time spent on procedures (mins): 75 Comments: Interpreting labs, arranging transfer, discussing with family, continuing management while awaiting transport. Discharge - Discharge Clinical Impression: Cardiac arrest, Hyperkalemia, Acute respiratory failure with hypercapnia, Elevated troponin, Elevated brain natriuretic peptide (BNP) level Pneumonia Qualifiers: Pneumonia type: due to unspecified organism Laterality: right Lung location: lower lobe of lung Qualified Code(s): J18.1 - Lobar pneumonia, unspecified organism Condition: Critical Disposition: [facility]
[2017-10-29] MEDS ORDERED: NORMAL SALINE 1000 ML 1,000 ML IV ONE (17:26)
[2017-10-29] MEDS ORDERED: SODIUM BICARBONATE 8.4% INJ 50 MEQ/50 ML DISP.SYRIN ONE ×2 (17:27→17:33)
[2017-10-29 20:13] VITALS: BP 113/59
--- NOTE | 2017-10-29 22:05 | EKG REPORT ---
SEVERITY:- NORMAL ECG - SINUS RHYTHM NONSPECIFIC ST-T CHANGES : Confirmed by: Americo Andersen 29-Oct-2017 22:04:29
== END 2017-10-29 20:35 | disposition short-term general hospital (02) ==
LOC: ER 13:03
DX: J96.02 Acute respiratory failure with hypercapnia (principal); J96.01 Acute respiratory failure with hypoxia; J18.1 Lobar pneumonia, unspecified organism; I46.9 Cardiac arrest, cause unspecified; R79.89 Other specified abnormal findings of blood chemistry; E87.5 Hyperkalemia; H57.02 Anisocoria; E87.2 Acidosis; D72.829 Elevated white blood cell count, unspecified; D64.9 Anemia, unspecified; I10 Essential (primary) hypertension; J44.9 Chronic obstructive pulmonary disease, unspecified; E11.9 Type 2 diabetes mellitus without complications; Z79.4 Long term (current) use of insulin; Z88.0 Allergy status to penicillin; Z88.1 Allergy status to other antibiotic agents; R74.8 Abnormal levels of other serum enzymes; Z79.891 Long term (current) use of opiate analgesic
CPT/HCPCS: 93005; 99291; 99292; 96372; 96361; 96375; 96365; 96366; 96367; 96368; 36415; 87040; 82553; 82962; 80307 ×2; 82803; 82550; 85025; 85610; 85730; 80048; 80053; 81001; 84484; 83605; 83880; 71045; 70450; 94660; 93010; J2250 ×2; J0610; J3490 ×2; J1940; J1650; J1815; J0696; J7060; J7030; J3370; J0692